=== PATIENT | male | born 1935 | race American Indian/Alaskan Native ===

== ENCOUNTER 2018-08-07 03:02 | Inpatient (IN) | payer MEDICARE ==
[2018-08-07 03:05] VITALS: BMI 28.1
--- NOTE | 2018-08-07 03:51 | ED PDOC ---
Arrival/HPI - General Chief Complaint: Lower Extremity Problem/Injury Time Seen by Provider: 08/07/18 03:05 Historian: Patient - History of Present Illness Narrative History of Present Illness (Text): 08/07/18 03:48 Enrike Bejarano is an 83 year old male, whose past medical history includes lung cancer, COPD, BPH, and chronic kidney disease, who presents to the Emergency department brought in by EMS complaining of bilateral lower extremity pain. Patient states he was recently discharged from [facility] today following treatment for cellulitis but states his symptoms have not improved. Patient states he is still experiencing bilateral lower extremity pain, left greater than the right. Patient denies any fever, chills, chest pain, shortness of breath, nausea, vomiting, diarrhea, urinary symptoms, back pain, neck pain, headache, dizziness, or any other complaints. Symptom Onset: Gradual Symptom Course: Unchanged Activities at Onset: Light Context: Home Past Medical History - Provider Review Nursing Documentation Reviewed: Yes - Cardiac Hx Hypertension: Yes - Pulmonary Hx Chronic Obstructive Pulmonary Disease (COPD): Yes - Neurological Hx Neurological Disorder: No - HEENT Hx HEENT Disorder: No - Renal Hx Renal Disorder: Yes - Endocrine/Metabolic Hx Endocrine Disorders: No - Hematological/Oncological Hx Blood Disorders: No - Integumentary Hx Psoriasis: Yes - Musculoskeletal/Rheumatological Hx Musculoskeletal Disorders: No - Gastrointestinal Hx Gastrointestinal Disorders: No - Genitourinary/Gynecological Hx Genitourinary Disorders: Yes Hx Prostate Problems: Yes - Psychiatric Hx Psychophysiologic Disorder: No Hx Substance Use: No - Anesthesia Hx Anesthesia: Yes Hx Anesthesia Reactions: No Hx Malignant Hyperthermia: No Family/Social History - Physician Review Nursing Documentation Reviewed: Yes Family/Social History: Unknown Family HX Smoking Status: Former Smoker Hx Alcohol Use: No Hx Substance Use: No Allergies/Home Meds Allergies/Adverse Reactions: Allergies No Known Allergies Allergy (Verified 08/07/18 03:05) Home Medications: Home Meds Medication Instructions Recorded Confirmed Aspirin [Aspirin Chewable] 81 mg PO DAILY 08/07/18 08/07/18 Cephalexin [Keflex] 500 mg PO Q12H 08/07/18 08/07/18 Ferrous Sulfate 325 mg PO DAILY 08/07/18 08/07/18 Finasteride [Proscar] 5 mg PO DAILY 08/07/18 08/07/18 Fluticasone/Vilanterol 100/25 1 puff PO DAILY 08/07/18 08/07/18 [Breo Ellipta 100-25 MCG INH] Folic Acid 1 mg PO DAILY 08/07/18 08/07/18 Furosemide [Lasix] 20 mg PO DAILY 08/07/18 08/07/18 Simvastatin [Zocor] 10 mg PO DAILY 08/07/18 08/07/18 Sucralfate [Carafate] 1 gm PO ACHS 08/07/18 08/07/18 Tamsulosin [Flomax] 0.4 mg PO Q24H 08/07/18 08/07/18 diltiaZEM [Cardizem] 30 mg PO QID 08/07/18 08/07/18 Review of Systems - Physician Review All systems were reviewed & negative as marked: Yes - Review of Systems Constitutional: Normal. absent: Fevers Eyes: Normal ENT: Normal Respiratory: Normal. absent: SOB, Cough Cardiovascular: Normal. absent: Chest Pain Gastrointestinal: Normal. absent: Abdominal Pain, Diarrhea, Nausea, Vomiting Genitourinary Male: Normal. absent: Dysuria, Frequency, Hematuria, Urinary Output Changes Musculoskeletal: Other (+bilateral lower extremity pain). absent: Back Pain, Neck Pain Skin: Normal. absent: Rash Neurological: Normal. absent: Headache, Dizziness Endocrine: Normal Hemo/Lymphatic: Normal Psychiatric: Normal Physical Exam Vital Signs Reviewed: Yes Vital Signs Temp Pulse Resp BP Pulse Ox 08/07/18 03:17 98.0 F 85 18 130/58 L 95 Temperature: Afebrile Blood Pressure: Normal Pulse: Regular Respiratory Rate: Normal Appearance: Positive for: Well-Appearing, Non-Toxic, Comfortable Pain Distress: None Mental Status: Positive for: Alert and Oriented X 3 - Systems Exam Head: Present: Atraumatic, Normocephalic Pupils: Present: PERRL Extroacular Muscles: Present: EOMI Conjunctiva: Present: Normal Mouth: Present: Moist Mucous Membranes Neck: Present: Normal Range of Motion Respiratory/Chest: Present: Clear to Auscultation, Good Air Exchange. No: Respiratory Distress, Accessory Muscle Use Cardiovascular: Present: Regular Rate and Rhythm, Normal S1, S2. No: Murmurs Abdomen: No: Tenderness, Distention, Peritoneal Signs Back: Present: Normal Inspection Upper Extremity: Present: Normal Inspection. No: Cyanosis, Edema Lower Extremity: Present: NORMAL PULSES, Normal ROM, Erythema (Bilateral lower extremity erythema and warmth/dry scaly skin), Neurovascularly Intact, Capillary Refill < 2 s. No: Edema Neurological: Present: GCS=15, CN II-XII Intact, Speech Normal Skin: Present: Warm, Dry, Normal Color. No: Rashes Psychiatric: Present: Alert, Oriented x 3, Normal Insight, Normal Concentration Medical Decision Making ED Course and Treatment: 08/07/18 03:48 Impression: 83 year old male complaining of bilateral lower extremity pain. Plan: -- EKG -- Chest X-ray -- Labs, blood cultures, BNP, cardiac enzymes -- US Duplex Lower Extremities -- Reassess and disposition Prior Visits: Notes and results from previous visits were reviewed. Progress Notes: 08/07/18 05:13 Chest X-ray reviewed, shows no acute processes. 08/07/18 05:27 US Duplex Lower Extremities negative for DVT. 08/07/18 05:[address] Cartagena, who is aware and agrees with plan. Accepts pt in to her service. Pt will go to [facility] observation for cellulitis. Requests Go on consult. - RAD Interpretation Gandy Dancer: ED Physician - Scribe Statement The provider has reviewed the documentation as recorded by the Scribfran Castillo Provider Scribe Attestation: All medical record entries made by the Scribe were at my direction and perso akil dictated by me. I have reviewed the chart and agree that the record accurately reflects my personal performance of the history, physical exam, medical decision making, and the department course for this patient. I have also personally directed, reviewed, and agree with the discharge instructions and disposition. Disposition/Present on Arrival - Present on Arrival Any Indicators Present on Arrival: No History of DVT/PE: No History of Uncontrolled Diabetes: No Urinary Catheter: No History of Decub. Ulcer: No History Surgical Site Infection Following: None - Disposition Have Diagnosis and Disposition been Completed?: Yes Diagnosis: Cellulitis, Leg pain Disposition: HOSPITALIZED Disposition Time: 06:12 Condition: STABLE Discharge Instructions (ExitCare): Cellulitis (ED) Referrals: Yoni Baez MD [Primary Care Provider] - Follow up with primary Forms: [employer] (Yi)
[2018-08-07 06:05] LABS: HEMOGLOBIN 10.8 g/dL (14.0-18.0); MEAN CELL VOLUME 95.2 fl (80.0-105.0); MEAN CORPUSCULAR HEMOGLOBIN 30.8 pg (25.0-35.0); MEAN CORPUSCULAR HGB CONC 32.3 g/dl (31.0-37.0); MEAN PLATELET VOLUME 10.2 fl (7.0-11.0); RBC 3.51 10^6/uL (3.5-6.1); RED CELL DISTRIBUTION WIDTH 16.5 % (11.5-14.5); WHITE BLOOD COUNT 7.4 10^3/uL (4.5-11.0)
[2018-08-07] MEDS ORDERED: cefTRIAXone 1 gm 1 GM/100 ML BAG IV STA (06:10)
[2018-08-07 06:46] LABS: INR 1.21; PARTIAL THROMBOPLASTIN TIME 29.2 Seconds (25.1-36.5)
[2018-08-07 06:48] LABS: ALB/GLOB RATIO 0.9 (1.1-1.8); ALBUMIN 3.5 g/dL (3.0-4.8)
[2018-08-07 07:00] LABS: TROPONIN I 0.01 ng/mL
--- NOTE | 2018-08-07 08:54 | RAD ---
Date of service: 08/07/2018 HISTORY: fever COMPARISON: No prior. FINDINGS: Right-sided MediPort is directed cranially and terminates in the high JV. LUNGS: The lungs are hyperinflated and there is peribronchial thickening with chronic changes in both lungs. There is bibasilar atelectasis/scarring no focal consolidation. PLEURA: No pleural effusions or pneumothorax. CARDIOVASCULAR: The heart is normal in size. No aortic atherosclerotic calcification present. OSSEOUS STRUCTURES: Within normal limits for the patient's age. VISUALIZED UPPER ABDOMEN: Normal. OTHER FINDINGS: None. IMPRESSION: Right-sided MediPort terminates in the right JV. COPD. No acute findings.
[2018-08-07] MEDS ORDERED: Furosemide 40 mg/5 mL Oral Soln UD PO SCH (11:00)
[2018-08-07] MEDS: Sucralfate 1 gm/10 ml Oral Susp UD PO SCH ×3 (11:07→23:36)
[2018-08-07] MEDS: Fluticasone Nasal 50 mcg/Spray NS SCH (11:07)
--- NOTE | 2018-08-07 14:15 | US ---
HISTORY: Leg pain and swelling. Evaluate for DVT PHYSICIAN(S): Haseeb Elder MD. TECHNIQUE: Duplex sonography and color-flow Doppler with graded compression were used to evaluate the deep venous systems of both lower extremities. FINDINGS: The visualized deep venous systems of both lower extremities are sonographically normal and compressible. Normal wave forms and augmentation are seen. There is no sonographic evidence for deep venous thrombosis in the visualized segments of both lower extremities. IMPRESSION: No sonographic evidence for deep venous thrombosis in the visualized segments of both lower extremities.
[2018-08-07] MEDS ORDERED: Pneumococcal 23-Valent Vaccine IM ONE (15:45)
[2018-08-07] MEDS ORDERED: Influenza Vaccine 60 mcg/0.5 mL SYR (4YR UP) IM ONE (15:45)
--- NOTE | 2018-08-07 16:53 | CP.PCM.CON ---
History of Present Illness - History of Present Illness History of Present Illness: Infectious Disease Consultation: August 07, 2018 83 yo male with extensive past medical history that includes lung cancer, COPD, BPH, and chronic kidney disease recented discharged from [facility]. The patient complains of bilateral lower extremity pain with left greater than right. The patient is awake and alert. Currently afebrile. Venous Duplex was negative for DVT. Patient claims pain up to 10 out of 10 that hits only intermittently throughout the day. Currently the patient states pain is 0 but that he experiences intermittent pain as low as 5 out of 10 up to 10 out of 10. PMHx: Lung Cancer, COPD, BPH, CKD PSHx: Patient does not reveal any history of surgery at this time. Will check [facility] records. Allergies: NKDA Social Hx: Ex-smoker No EtOH or illicit drug use Active Medications Acetylcysteine (Acetylcysteine 20%) 3 ml INH BID [facility] Arformoterol Tartrate (Brovana) 15 mcg IH [id number] [facility] Aspirin (Ecotrin) 81 mg PO DAILY [facility] Atorvastatin Calcium (Lipitor) 10 mg PO DIN [facility] Budesonide (Pulmicort Respules) 0.5 mg IH [id number] [facility] Diltiazem HCl (Cardizem) 30 mg PO QID [facility] Ferrous Sulfate (Feosol) 324 mg PO DAILY [facility] Finasteride (Proscar) 5 mg PO DAILY [facility] Fluticasone Propionate (Flonase) 1 actuation NS DAILY [facility] Last Admin: 08/07/18 11:07 Dose: 1 puff Folic Acid (Folic Acid) 1 mg PO DAILY [facility] Furosemide (Lasix) 20 mg PO DAILY [facility] Heparin Sodium (Porcine) (Heparin) 5,000 units SC Q12 [facility]; Protocol Ampicillin Sodium/Sulbactam (Sodium 3 gm/ Sodium Chloride) 100 mls @ 200 mls/hr IVPB Q6 [facility] Ipratropium Gaffney (Atrovent) 0.5 mg IH [id number] [facility] Methylprednisolone (Solu-Medrol) 30 mg IVP Q12 [facility] Sucralfate (Carafate Oral Susp) 1 gm PO 0630,1130,1630,2200 [facility] Last Admin: 08/07/18 11:07 Dose: 1 gm Tamsulosin HCl (Flomax) 0.4 mg PO DAILY [facility] Last Admin: 08/07/18 11:07 Dose: 0.4 mg Family Hx: Denies ROS: No fevers, chills, nausea, vomiting, diarrhea, headaches, dizziness, chest pain, abdominal pain, melena, hematuria, hematemesis, hematochezia, depression, anxi ety. Chronic venous stasis changes on the lower extremities. Past Patient History - Past Social History Smoking Status: Former Smoker - CARDIAC Hx Cardiac Disorders: Yes Hx Hypertension: Yes - PULMONARY Hx Respiratory Disorders: Yes Hx Chronic Obstructive Pulmonary Disease (COPD): Yes - NEUROLOGICAL Hx Neurological Disorder: No - HEENT Hx HEENT Problems: No - RENAL Hx Chronic Kidney Disease: Yes - ENDOCRINE/METABOLIC Hx Endocrine Disorders: No - HEMATOLOGICAL/ONCOLOGICAL Hx Blood Disorders: Yes Hx Cancer: Yes (LUNG CA -LAST CHEMO WAS 2 WEEKS AGO.Q 3 WKS. AT [address] [place] [address] TIFFANY TELLO) - INTEGUMENTARY Hx Dermatological Problems: Yes Hx Psoriasis: Yes Other/Comment: 08-07-18 BILATERAL LE EDEMA ,BILATERAL LEG CELLULITIS.HOT SKIN,PAIN,VERY DRY TAUT THICKENED SKIN. INTACT SKIN. PAIN. UANBLE TO WALK DUE TO PAIN. - MUSCULOSKELETAL/RHEUMATOLOGICAL Hx Musculoskeletal Disorders: Yes (SLIPPED DISC,RIGHT HAND SX) Hx Back Pain: Yes Hx Falls: Yes Hx Unsteady Gait: Yes (CANE ,WALKER) - GASTROINTESTINAL Hx Gastrointestinal Disorders: Yes (COLONOSCOPY DONE WITH PERFORATION.HAD COLON SX.) - GENITOURINARY/GYNECOLOGICAL Hx Genitourinary Disorders: Yes Hx Prostate Problems: Yes - PSYCHIATRIC Hx Psychophysiologic Disorder: Yes (SMOKED CIGARETTES,DRANK ALCOHOL.QUIT) Hx Substance Use: No (DENIES) - SURGICAL HISTORY Hx Surgeries: Yes (COLON SX,RIGHT HAND SX.) - ANESTHESIA Hx Anesthesia: Yes Hx Anesthesia Reactions: No Hx Malignant Hyperthermia: No Meds Allergies/Adverse Reactions: Allergies Allergy/AdvReac Type Severity Reaction Status Date / Time No Known Allergies Allergy Verified 08/07/18 11:45 - Medications Medications: Current Medications Acetylcysteine (Acetylcysteine 20%) 3 ml INH BID [facility] Arformoterol Tartrate (Brovana) 15 mcg IH [id number] [facility] Aspirin (Ecotrin) 81 mg PO DAILY [facility] Atorvastatin Calcium (Lipitor) 10 mg PO DIN [facility] Budesonide (Pulmicort Respules) 0.5 mg IH [id number] [facility] Diltiazem HCl (Cardizem) 30 mg PO QID [facility] Ferrous Sulfate (Feosol) 324 mg PO DAILY [facility] Finasteride (Proscar) 5 mg PO DAILY [facility] Fluticasone Propionate (Flonase) 1 actuation NS DAILY [facility] Last Admin: 08/07/18 11:07 Dose: 1 puff Folic Acid (Folic Acid) 1 mg PO DAILY [facility] Furosemide (Lasix) 20 mg PO DAILY [facility] Heparin Sodium (Porcine) (Heparin) 5,000 units SC Q12 [facility]; Protocol Ampicillin Sodium/Sulbactam (Sodium 3 gm/ Sodium Chloride) 100 mls @ 200 mls/hr IVPB Q6 [facility] Ipratropium Gaffney (Atrovent) 0.5 mg IH [id number] Methylprednisolone (Solu-Medrol) 30 mg IVP Q12 [facility] Sucralfate (Carafate Oral Susp) 1 gm PO 0630,1130,1630,2200 [facility] Last Admin: 08/07/18 11:07 Dose: 1 gm Tamsulosin HCl (Flomax) 0.4 mg PO DAILY [facility] Last Admin: 08/07/18 11:07 Dose: 0.4 mg Physical Exam - Constitutional Appears: Non-toxic, No Acute Distress, Chronically Ill - Head Exam Head Exam: ATRAUMATIC, NORMOCEPHALIC - Eye Exam Eye Exam: EOMI, PERRL Pupil Exam: NORMAL ACCOMODATION, PERRL - ENT Exam ENT Exam: Mucous Membranes Moist, Normal External Ear Exam, TM's Normal Bilaterally - Neck Exam Neck exam: Positive for: Full Rom, Normal Inspection - Respiratory Exam Respiratory Exam: Decreased Breath Sounds, NORMAL BREATHING PATTERN. absent: Rales, Rhonchi, Wheezes - Cardiovascular Exam Cardiovascular Exam: REGULAR RHYTHM, RRR, +S1, +S2 - GI/Abdominal Exam GI & Abdominal Exam: Normal Bowel Sounds, Soft. absent: Distended, Tenderness - Extremities Exam Extremities exam: Negative for: joint swelling, pedal edema Additional comments: skin of the lower extremities are much darker than on other parts of the body. Quality of the skin is parchment like. The left lower leg with cracks in the skin but no obvious signs of cellulitis. Mild pinpoint areas of tenderness in t he lower extremities bilaterally although left worse than right. Signs of chronic venous stasis. - Neurological Exam Neurological exam: Alert, CN II-XII Intact, Oriented x3 - Psychiatric Exam Psychiatric exam: Normal Affect, Normal Mood - Skin Additional comments: As above. Results - Vital Signs Recent Vital Signs: Last Vital Signs Temp 97.6 F 08/07/18 14:00 Pulse 85 08/07/18 14:00 Resp 18 08/07/18 15:15 BP 103/56 L 08/07/18 14:00 Pulse Ox 94 L 08/07/18 14:00 - Labs Result Diagrams: 08/07/18 05:08 08/07/18 06:14 Labs: Laboratory Results - last 24 hr 08/07/18 08/07/18 08/07/18 05:08 06:14 06:20 WBC 7.4 RBC 3.51 Hgb 10.8 L Hct 33.4 L MCV 95.2 MCH 30.8 MCHC 32.3 RDW 16.5 H Plt Count 257 MPV 10.2 PT 14.0 H INR 1.21 APTT 29.2 Sodium 135 Potassium 4.4 Chloride 99 Carbon Dioxide 30 Anion Gap 11 BUN 59 H Creatinine 1.8 H Est GFR ( Amer) 44 Est GFR (Non-Af Amer) 36 Random Glucose 104 Calcium 9.0 Total Bilirubin 0.4 AST 43 ALT 24 Alkaline Phosphatase 87 Lactate Dehydrogenase 761 H Total Creatine Kinase 38 Troponin I 0.01 NT-Pro-B Natriuret Pep 416 Total Protein 7.5 Albumin 3.5 Globulin 3.9 Albumin/Globulin Ratio 0.9 L Assessment & Plan - Assessment and Plan (Free Text) Assessment: 83 yo AA male with pain in the bilateral lower extremities. The patient was recently in [facility]. Extensive medical history that includes lung Cancer, COPD, BPH, and CKD. It appears he had followed with Dr. Mario Chawla for Oncology. There are signs of chronic venous stasis in both lower extremities although the left is worse than the right. Minimal signs of cellulitis. No signs of DVT in testing. I suspect significant arterial vascular disease in the lower extremities especially left leg more than the right. Start on renally adjusted Teflaro for antibiotic therapy. Supportive care. Thank you for allowing me to participate in the care of the patient, we will follow with you.
[2018-08-07] MEDS: Acetylcysteine 20% Inhal Soln (4ml) INH SCH (19:55)
[2018-08-07] MEDS: Ipratropium 0.02% Inhal Soln (0.5 mg/2.5 ml) UD IH SCH (19:55)
[2018-08-07] MEDS: Budesonide 0.5 mg/2 ml Inhal Susp UD IH SCH (19:55)
[2018-08-07] MEDS: Arformoterol 15 mcg/2 ml Inh Sol IH SCH (19:55)
--- NOTE | 2018-08-07 20:34 | CARD ---
APPROVED REPORT Date of service: 08/07/2018 EKG Measurement Heart [id number] <Conclusion> Sinus rhythm with occasional premature ventricular complexes Abnormal ECG
[2018-08-07] MEDS ORDERED: Oxycodone/Acetaminophen 5/325 mg Tab PO ONE ×2 (20:41→23:30)
[2018-08-07] MEDS: MethylPREDNISolone 40 mg Vial IVP SCH (23:07)
--- NOTE | 2018-08-08 00:52 | CON ---
DATE: 08/07/2018 PULMONARY CONSULTATION REFERRING PHYSICIAN: Dr. Cartagena REASON FOR CONSULT: History of lung cancer, chronic lung disease, cough and shortness of breath. HISTORY OF PRESENT ILLNESS: This is an 83-year-old gentleman who was recently discharged from [facility], has a history of chronic obstructive lung disease, unresectable lung cancer, been on chemotherapy, last chemo was 3 weeks ago, BPH, renal insufficiency, chronic lower extremity stasis dermatitis, treated for cellulitis at [facility], comes to ER with lower extremity pain and discomfort, cough and shortness of breath. PAST MEDICAL HISTORY: As per history of present illness. Also has hypertension, psoriasis, history of BPH. FAMILY HISTORY: No significant cardiopulmonary disease reported. SOCIAL HISTORY: He stopped smoking about 4-5 years ago. Denied any alcohol use. ALLERGIES: NONE KNOWN. MEDICATIONS: He is on Carafate 1 g four times a day, Cardizem 30 mg four times a day, Ecotrin 81 mg daily, ferrous sulfate 324 mg daily, Flomax 0.4 mg daily, Flonase once to each nostril daily, folic acid 1 mg daily, Lasix 20 mg daily, Lipitor 10 mg daily, Proscar 5 mg daily. He received Rocephin in ER. REVIEW OF SYSTEMS: No headache. No rhinitis. Does not know if snores. Daytime sleepy and tired. Has cough, shortness of breath. No chest pain. No nausea, no vomiting, no diarrhea. Does have leg swelling and erythema. PHYSICAL EXAMINATION: GENERAL: In no acute distress. VITAL SIGNS: Temperature is 98, heart rate is 85, respiratory rate is 18, blood pressure 103/56, pulse ox 94% on nasal cannula. HEENT: Moist mucous membrane. Crowded airway. Mallampati score is 4. NECK: Supple. No JVD. LUNGS: He has one-third up right side crackles. Decreased in the left base. HEART: S1 and S2. ABDOMEN: Soft, nontender. No organomegaly. EXTREMITIES: Does have chronic skin changes in lower extremity with erythema. NEUROLOGIC: Awake, alert, follows simple commands. LABORATORY DATA: Shows hemoglobin 10.8, hematocrit 33.4, WBC 7.4, platelet count is 257. INR 1.21, PTT 29. Sodium 135, potassium 4.4, chloride 99, bicarbonate 30, BUN 59, creatinine 1.8, glucose 104, calcium 9, total bili 0.4, AST 43, ALT 24, alk phos is 87. LDH 761. Troponin 0.01. ProBNP 416. Albumin is 3.5. Has an ultrasound of the lower extremity which shows no evidence of DVT of the lower extremity. Chest x-ray done which shows right-sided MediPort, terminates in the right JV, consistent with obstructive disease. No other acute finding reported. There is basilar atelectasis and scarring. IMPRESSION AND PLAN: Chronic obstructive lung disease, unresectable lung cancer, may have cellulitis of lower extremity, history of renal insufficiency, hypertension, benign prostatic hyperplasia, history of psoriasis. Agree with the present management. We will add antibiotics, may add Unasyn, IV steroids, inhaled bronchodilator, gastric and deep venous thrombosis prophylaxis. The patient does have a follow-up appointment with Pulmonary and Oncology. Will have a CAT scan as an outpatient. We will treat his acute issues for now, and on discharge, we will follow with his oncologist. Thank you and we will follow with you. Bubba Banegas MD
[2018-08-08] MEDS: Ipratropium 0.02% Inhal Soln (0.5 mg/2.5 ml) UD IH SCH ×4 (01:51→20:27)
[2018-08-08] MEDS: Sucralfate 1 gm/10 ml Oral Susp UD PO SCH ×4 (06:36→22:09)
[2018-08-08 07:25] LABS: HEMOGLOBIN 9.8 g/dL (14.0-18.0); MEAN CORPUSCULAR HEMOGLOBIN 29.9 pg (25.0-35.0); MEAN CORPUSCULAR HGB CONC 31.1 g/dl (31.0-37.0); MEAN PLATELET VOLUME 9.2 fl (7.0-11.0); RBC 3.28 10^6/uL (3.5-6.1); WHITE BLOOD COUNT 5.5 10^3/uL (4.5-11.0)
[2018-08-08] MEDS: Arformoterol 15 mcg/2 ml Inh Sol IH SCH ×2 (07:36→20:29)
[2018-08-08] MEDS: Budesonide 0.5 mg/2 ml Inhal Susp UD IH SCH ×2 (07:37→20:28)
[2018-08-08 07:39] LABS: HDL CHOLESTEROL 28 mg/dL (29-60)
[2018-08-08 07:43] LABS: ALB/GLOB RATIO 0.9 (1.1-1.8); ALBUMIN 3.3 g/dL (3.0-4.8); CALCIUM 8.7 mg/dL (8.4-10.5); IRON 37 ug/dL (45-180)
[2018-08-08 07:49] LABS: LDL CHOLESTEROL 73 mg/dL (0-129)
[2018-08-08 07:53] LABS: % IRON SATURATION 17 % (20-55); TOTAL IRON BINDING CAPACITY 216 ug/dL (261-462)
[2018-08-08] MEDS: MethylPREDNISolone 40 mg Vial IVP SCH ×2 (10:42→22:09)
[2018-08-08] MEDS: Fluticasone Nasal 50 mcg/Spray NS SCH (10:46)
[2018-08-08] MEDS ORDERED: Sod Polystyrene Sulf 15 gm/60 ml Susp PO ONE (11:15)
--- NOTE | 2018-08-08 12:01 | HP ---
DATE OF EXAM: 08/07/2018 The patient was seen and examined at the bedside on 08/07/2018. CHIEF COMPLAINT: Pain in the legs. HISTORY OF PRESENT ILLNESS: Mr. Enrike Velez is an 83-year-old male whose past medical history include lung cancer, COPD, BPH, chronic kidney disease, came to the emergency department by EMS, complaining of bilateral lower extremity pain and there is a discoloration of the skin. The patient states that he was recently discharged from [facility] for the treatment of cellulitis of his legs, but states that his symptoms have not improved. The patient states that today he still experiences bilateral lower extremity pain, left greater than the right. The patient denies any fever, chills, shortness of breath and nausea, vomiting, diarrhea. No urinary symptoms. No hematuria, hematochezia. No back pain, neck pain, headache, dizziness. PAST MEDICAL HISTORY: As above; history of lung cancer, COPD, BPH, chronic kidney disease, hypertension, psoriasis, prostate problem. FAMILY HISTORY: Father and mother, noncontributory. HABITS: Former smoker. No drugs. No ethanol. ALLERGIES: PATIENT IS NOT ALLERGIC WITH ANY MEDICATION. HOME MEDICATIONS: Aspirin, Keflex, ferrous sulfate, Proscar, folic acid, Lasix, Zocor, Carafate, Flomax, Cardizem. REVIEW OF SYSTEMS: The patient was seen and examined at the bedside in his room, complaining about leg pain, skin is very dry and discolored. No shortness of breath. No chest pain. No diarrhea. No nausea, vomiting. Both lower extremities are swollen. No headache. No dizziness. PHYSICAL EXAMINATION: VITAL SIGNS: Temperature 98, pulse 85, respiratory rate 18, blood pressure 130/58. HEENT: Head normocephalic, atraumatic. Eyes; PERRLA. Extraocular muscles intact. Conjunctivae clear. Nose patent. Mucous membrane moist. NECK: Supple. No carotid bruit. No JVD. No thyromegaly. CHEST: Bilaterally symmetrical. HEART: S1, S2 positive. LUNGS: Clear to auscultation. ABDOMEN: Soft. Bowel sounds positive. No organomegaly. EXTREMITIES: Positive edema, erythema, warm, dry, scaly skin. NEUROLOGIC: Awake, alert, oriented x3. Follow simple commands. Moving all four extremities. LABORATORY DATA: White blood cells 7.4, hemoglobin 10.8, hematocrit 33.4, platelets 257,000. Sodium 135, potassium 4.4, BUN 59, creatinine 1.8, glucose 104. Lactate dehydrogenase 751. ASSESSMENT AND PLAN: Mr. Enrike Velez is an 83-year-old male with anemia, renal insufficiency, extremity ultrasound has done, showed no sonographic evidence of deep vein thrombosis in the visualized segments of both lower extremities. Chest x-ray was reviewed by me. The patient has history of lung cancer, chronic obstructive pulmonary disease, benign prostatic hypertrophy, chronic kidney disease, recently discharged from [facility], came with bilateral lower extremity pain, left greater than the right. Venous Doppler negative for deep vein thrombosis. The patient complains pain 10/10 that is intermittently throughout the day. When I saw the patient that pain was 6 and 7. Looks like signs of chronic venous stasis in both lower extremities, erythematous. The left is worse than the right. May be the patient has some arterial vascular disease in the lower extremities, left leg more than the right. Dr. Torres started the patient on anb. , adjusted the Teflaro, supportive care. We will do arterial Doppler. Repeat labs. Continue pain medication. Gastrointestinal and deep venous thrombosis prophylaxis. We will follow up. Jessica Cartagena MD MTDD
--- NOTE | 2018-08-08 13:08 | PN ---
DATE: 08/08/2018 PULMONARY PROGRESS NOTE REFERRING PHYSICIAN: Jessica Cartagena MD SUBJECTIVE: The patient is sitting up in an armchair at bedside. No acute distress noted. The patient reports shortness of breath with exertion. No cough. No headache, rhinitis, chest pain, abdominal pain, nausea, vomiting, diarrhea. No leg pain reported today. OBJECTIVE: GENERAL: No acute distress. VITAL SIGNS: Blood pressure 125/60, pulse 80, temp 98.3, oxygen saturation 99% on nasal canula. HEENT: Moist mucous membranes. Crowded airway. Mallampati score of 4. NECK: Supple. No JVD. LUNGS: Right side crackles. Diminished breath sounds on the bases on the left. CARDIOVASCULAR: S1 and S2 audible. ABDOMEN: Soft, nontender. No distension. No organomegaly. EXTREMITIES: Chronic skin changes to bilateral lower extremities with mild erythema. NEUROLOGIC: Awake, alert. Follows simple commands. Verbal. MEDICATION: Reviewed. Mucomyst 3 mL inhalation twice a day, Brovana 15 mcg inhalation every 12 hours, aspirin 81 mg p.o. daily, Lipitor 10 mg at dinner, Pulmicort 0.5 mg inhalation every 12 hours, ceftaroline fosamil 400 mg every 12 hours, Cardizem 30 mg four times a day, Colace 100 mg twice a day, ferrous sulfate 324 mg daily, Proscar 5 mg daily, Flonase one spray each nostril daily, folic acid 1 mg p.o. daily, Lasix 20 mg p.o. daily, heparin 5000 unit subcu every 12 hours, Dilaudid 0.5 mg IV push every 4 hours p.r.n. mild pain, Atrovent 0.5 mg inhalation every 6 hours, Solu-Medrol 30 mg IV push every 12 hours, Kayexalate 15 g p.o. once, Carafate 1 g four times a day, Flomax 0.4 mg daily. LABORATORY DATA: Reviewed. WBC 5.5, RBC 3.28, hemoglobin 9.8, hematocrit 31.5, platelets 300. Sodium 136, potassium 5.4, chloride 100, carbon dioxide 30, anion gap 11, BUN 53, creatinine 1.8. GFR 44. Random glucose 137, calcium 8.7, iron 37, TIBC 216, percent saturation 17, total bilirubin 0.3, AST 45, ALT 25, alkaline phosphatase 80, total protein 7.1, albumin 3.3, globulin 3.8, and albumin-globulin ratio 0.9. Triglycerides 54, cholesterol 118, LDL cholesterol direct 73, HDL cholesterol 28. IMPRESSION AND PLAN: Chronic obstructive lung disease, unresectable lung cancer, cellulitis of lower extremity, history of renal insufficiency, hypertension, benign prostatic hyperplasia, history of psoriasis. Continue antibiotic therapy as per Infectious Disease. Continue intravenous steroids, inhaled bronchodilators, gastric prophylaxis, deep venous thrombosis prophylaxis. The patient will need followup CAT scan as outpatient. The patient does have followup with his outpatient Pulmonary and Oncology. Need repeat labs in the morning to follow potassium level. This patient was seen and examined with Dr. Banegas. Discussed assessment and plan as described above. Thank you for this consult and we will follow with you. Perry Dotson APN Bubba Banegas MD
[2018-08-08] MEDS: Acetylcysteine 20% Inhal Soln (4ml) INH SCH ×2 (13:47→20:28)
[2018-08-08 14:04] LABS: FOLATE > 20.0 ng/mL
[2018-08-08] MEDS: HYDROmorphone 0.5 mg/0.5 ml ISec IVP PRN (15:08)
--- NOTE | 2018-08-08 16:20 | CP.PCM.PN ---
Subjective - Date & Time of Evaluation Date of Evaluation: 08/08/18 Time of Evaluation: 15:00 - Subjective Subjective: Infectious Disease Follow Up: August 08, 2018 83 yo male with extensive past medical history that includes lung cancer, COPD, BPH, and chronic kidney disease recented discharged from [facility]. The patient comp lains of bilateral lower extremity pain with left greater than right. The patient is awake and alert. Currently afebrile. Venous Duplex was negative for DVT. Patient claims pain up to 10 out of 10 that hits only intermittently throughout the day. Currently the patient states pain is 0 but that he experiences intermittent pain as low as 5 out of 10 up to 10 out of 10. No new complaints today. Objective - Vital Signs/Intake and Output Vital Signs (last 24 hours): Temp Pulse Resp BP Pulse Ox 98.3 F 80 20 125/60 99 08/08/18 06:00 08/08/18 10:47 08/08/18 06:00 08/08/18 10:50 08/08/18 06:00 Intake and Output: 08/08/18 08/08/18 06:59 18:59 Intake Total 620 Output Total 300 Balance 320 - Medications Medications: Current Medications Acetylcysteine (Acetylcysteine 20%) 3 ml INH BID [facility] Last Admin: 08/08/18 13:47 Dose: 3 ml Arformoterol Tartrate (Brovana) 15 mcg IH [id number] [facility] Last Admin: 08/08/18 07:36 Dose: 15 mcg Aspirin (Ecotrin) 81 mg PO DAILY [facility] Last Admin: 08/08/18 10:50 Dose: 81 mg Atorvastatin Calcium (Lipitor) 10 mg PO DIN [facility] Last Admin: 08/07/18 18:49 Dose: 10 mg Budesonide (Pulmicort Respules) 0.5 mg IH [id number] [facility] Last Admin: 08/08/18 07:37 Dose: 0.5 mg Diltiazem HCl (Cardizem) 30 mg PO QID [facility] Last Admin: 08/08/18 10:47 Dose: 30 mg Docusate Sodium (Colace) 100 mg PO BID [facility] Last Admin: 08/08/18 12:59 Dose: 100 mg Ferrous Sulfate (Feosol) 324 mg PO DAILY [facility] Last Admin: 08/08/18 10:46 Dose: 324 mg Finasteride (Proscar) 5 mg PO DAILY [facility] Last Admin: 08/08/18 10:50 Dose: 5 mg Fluticasone Propionate (Flonase) 1 actuation NS DAILY [facility] Last Admin: 08/08/18 10:46 Dose: 1 puff Folic Acid (Folic Acid) 1 mg PO DAILY [facility] Last Admin: 08/08/18 10:46 Dose: 1 mg Furosemide (Lasix) 20 mg PO DAILY [facility] Last Admin: 08/08/18 10:50 Dose: 20 mg Heparin Sodium (Porcine) (Heparin) 5,000 units SC Q12 [facility]; Protocol Last Admin: 08/08/18 10:43 Dose: 5,000 units Hydromorphone HCl (Dilaudid) 0.5 mg IVP Q6H PRN PRN Reason: Pain, Mild (1-3) Ceftaroline Fosamil 400 mg/ (Sodium Chloride) 100 mls @ 100 mls/hr IVPB Q12 [facility]; Protocol Last Admin: 08/08/18 10:40 Dose: 100 mls/hr Ipratropium [place] (Atrovent) 0.5 mg IH [id number] [facility] Last Admin: 08/08/18 13:46 Dose: 0.5 mg Methylprednisolone (Solu-Medrol) 30 mg IVP Q12 [facility] Last Admin: 08/08/18 10:42 Dose: 30 mg Sucralfate (Carafate Oral Susp) 1 gm PO 0630,1130,1630,2200 [facility] Last Admin: 08/08/18 06:36 Dose: 1 gm Tamsulosin HCl (Flomax) 0.4 mg PO DAILY [facility] Last Admin: 08/08/18 10:50 Dose: 0.4 mg - Labs Labs: 08/08/18 07:00 08/08/18 07:00 PT 14.0 SECONDS (9.4-12.5) H 08/07/18 06:20 INR 1.21 08/07/18 06:20 APTT 29.2 Seconds (25.1-36.5) 08/07/18 06:20 - Constitutional Appears: Non-toxic, No Acute Distress, Chronically Ill - Head Exam Head Exam: ATRAUMATIC, NORMOCEPHALIC - Eye Exam Eye Exam: EOMI, PERRL Pupil Exam: NORMAL ACCOMODATION, PERRL - ENT Exam ENT Exam: Mucous Membranes Moist, Normal External Ear Exam, TM's Normal Bilaterally - Neck Exam Neck Exam: Full ROM, Normal Inspection - Respiratory Exam Respiratory Exam: Clear to Ausculation Bilateral, NORMAL BREATHING PATTERN. absent: Rales, Rhonchi, Wheezes - Cardiovascular Exam Cardiovascular Exam: REGULAR RHYTHM, RRR, +S1, +S2 - GI/Abdominal Exam GI & Abdominal Exam: Soft, Normal Bowel Sounds. absent: Distended, Tenderness - Extremities Exam Extremities Exam: absent: Joint Swelling, Pedal Edema Additional comments: skin of the lower extremities are much darker than on other parts of the body. Quality of the skin is parchment like. The left lower leg with cracks in the skin but no obvious signs of cellulitis. Mild pinpoint areas of tenderness in the lower extremities bilaterally although left worse than right. Signs of chronic venous stasis. - Neurological Exam Neurological Exam: Alert, Awake, CN II-XII Intact, Oriented x3 - Psychiatric Exam Psychiatric exam: Normal Affect, Normal Mood - Skin Additional comments: As above. Assessment and Plan - Assessment and Plan (Free Text) Assessment: 83 yo AA male with pain in the bilateral lower extremities. The patient was recently in [facility]. Extensive medical history that includes lung Cancer, COPD, BPH, and CKD. It appears he had followed with Dr. Mario Chawla for Oncology. There are signs of chronic venous stasis in both lower extremities although the left is worse than the right. Minimal signs of cellulitis. No signs of DVT in testing. I suspect significant arterial vascular disease in the lower extremities especially left leg more than the right. Started on renally adjusted Teflaro for antibiotic therapy. If cultures negative, will deescalate antibiotics. Supportive care. Thank you for allowing me to participate in the care of the patient, we will follow with you.
[2018-08-09] MEDS: Ipratropium 0.02% Inhal Soln (0.5 mg/2.5 ml) UD IH SCH ×5 (01:54→19:11)
[2018-08-09] MEDS: HYDROmorphone 0.5 mg/0.5 ml ISec IVP PRN (03:28)
[2018-08-09] MEDS: Sucralfate 1 gm/10 ml Oral Susp UD PO SCH ×4 (06:00→22:29)
[2018-08-09] MEDS: Acetylcysteine 20% Inhal Soln (4ml) INH SCH ×3 (07:23→18:47)
[2018-08-09] MEDS: Arformoterol 15 mcg/2 ml Inh Sol IH SCH ×3 (07:24→19:11)
[2018-08-09] MEDS: Budesonide 0.5 mg/2 ml Inhal Susp UD IH SCH ×3 (07:24→19:11)
[2018-08-09 07:27] LABS: HEMOGLOBIN 9.9 g/dL (14.0-18.0); MEAN CELL VOLUME 96.4 fl (80.0-105.0); MEAN CORPUSCULAR HGB CONC 31.1 g/dl (31.0-37.0); MEAN PLATELET VOLUME 9.4 fl (7.0-11.0); RBC 3.3 10^6/uL (3.5-6.1); WHITE BLOOD COUNT 8.5 10^3/uL (4.5-11.0)
[2018-08-09 07:37] LABS: CALCIUM 8.9 mg/dL (8.4-10.5)
[2018-08-09] MEDS: Fluticasone Nasal 50 mcg/Spray NS SCH (09:43)
[2018-08-09] MEDS: MethylPREDNISolone 40 mg Vial IVP SCH ×2 (09:45→22:30)
--- NOTE | 2018-08-09 12:15 | PN ---
PULMONARY PROGRESS NOTE DATE: 08/09/2018 REFERRING PHYSICIAN: Dr. Cartagena. SUBJECTIVE: Patient sitting up at bedside, no acute distress, reports that last night he had pain in his left leg, much better this morning, reports shortness of breath with exertion, denies cough. No headache, rhinitis, chest pain, abdominal pain, nausea, vomiting, diarrhea reported. OBJECTIVE: GENERAL: No acute distress. VITAL SIGNS: Blood pressure 132/64, pulse 64, temperature 97.6, and oxygen saturation 96% on nasal cannula. HEENT: Moist mucous membranes. Crowded airway. Mallampati score of 4. NECK: Supple. No JVD. LUNGS: Crackles audible to the right, diminished breath sounds in the left lung base. CARDIOVASCULAR: S1 and S2 audible. ABDOMEN: Soft, nontender. No distension. No organomegaly. EXTREMITIES: Chronic changes to bilateral lower extremities. NEUROLOGIC: Awake, alert, verbal, follows simple commands. MEDICATIONS: Reviewed. Mucomyst 3 mL inhalation twice a day, Brovana 15 mcg inhalation every 12 hours, aspirin 81 mg p.o. daily, Lipitor 10 mg p.o. at dinner, Pulmicort 0.5 mg inhalation every 12 hours, ceftaroline fosamil 400 mg every 12 hours, Cardizem 30 mg p.o. 4 times a day, Colace 100 mg p.o. twice a day, ferrous sulfate 324 mg p.o. daily, Proscar 5 mg p.o. daily, Flonase 1 spray each nostril daily, folic acid 1 mg p.o. daily, Lasix 20 mg p.o. daily, heparin 5000 units subcu every 12 hours, Dilaudid 0.5 mg IV push every 6 hours p.r.n., 0.5 mg inhalation every 6 hours, Solu-Medrol 30 mg IV push every 12 hours, Carafate 1 g four times a day, Flomax 0.4 mg p.o. daily. LABORATORY DATA: Reviewed. WBC 8.5, RBC 3.30, hemoglobin 9.9, hematocrit 31.8, platelets 444. Sodium 136, potassium 5.1, chloride 100, carbon dioxide 31, anion gap 11, BUN 57, creatinine 1.8. GFR 44. Random glucose 123, calcium 8.9, TSH 1.73. IMPRESSION AND PLAN: Chronic obstructive lung disease, unresectable lung cancer, cellulitis of the lower extremity, history of renal insufficiency, benign prostatic hyperplasia, history of psoriasis, hypertension. Pulmonary point of view, continue antibiotics as per Infectious Disease. Continue intravenous steroids, inhaled bronchodilators, gastric prophylaxis, deep venous thrombosis prophylaxis. Echocardiogram ordered and pending. This patient will need followup CAT scan as outpatient. We will order a podiatry consult. Close followup on the electrolytes. This patient was seen and examined with Dr. Banegas. Discussed assessment and plan as described above. Thank you for this consult, we will follow with you. Perry Dotson APN Bubba Banegas MD MTDJeff
--- NOTE | 2018-08-09 14:04 | CP.PCM.CON ---
<Fish Hussein - Last Filed: 08/09/18 13:58> History of Present Illness - History of Present Illness History of Present Illness: Podiatry consult note for Dr. Gordon: 83 yo male patient with extensive PMH that includes lung cancer, COPD, BPH, and chronic kidney disease recently discharged from [facility] seen and evaluated for pain and swelling of the LE L > R. The patient complains of bilateral lower extremity pain with left greater than right. The patient is awake and alert and on nasal O2. Patient states that 3 weeks ago he started to feel pain in his legs L > R. The pain is cramping, 10/10 more in the night when he lies on bed and received by sitting and hanging the legs. Patient states that the pain is intermittent throughout the day. Patient states that he can walk 1-2 blocks. P atient states that his left leg was swollen and the swelling went down. Patient denies any recent F/N/V or C. PMHx: Lung Cancer, COPD, BPH, CKD PSH: Patient does not reveal any history of surgery at this time. Will check [facility] records. Allergies: NKDA Social Hx: Ex-smoker (Quit 6 years ago after 60 years of 1 ppd tobacco smoking), EtOH socially, denies any illicit drug use Review of Systems - Review of Systems Review of Systems: As per HPI - Constitutional Constitutional: As Per HPI Past Patient History - Past Social History Smoking Status: Former Smoker - CARDIAC Hx Cardiac Disorders: Yes Hx Hypertension: Yes - PULMONARY Hx Chronic Obstructive Pulmonary Disease (COPD): Yes - NEUROLOGICAL Hx Neurological Disorder: No - HEENT Hx HEENT Problems: No - RENAL Hx Renal Failure: Yes (CKD) - ENDOCRINE/METABOLIC Hx Endocrine Disorders: No - HEMATOLOGICAL/ONCOLOGICAL Hx Blood Disorders: Yes Hx Cancer: Yes (LUNG CA -LAST CHEMO WAS 2 WEEKS AGO.Q 3 WKS. AT [address] [place] [address] [place]) - INTEGUMENTARY Hx Dermatological Problems: Yes Hx Psoriasis: Yes Other/Comment: 08-07-18 BILATERAL LE EDEMA ,BILATERAL LEG CELLULITIS.HOT SKIN,PAIN,VERY DRY TAUT THICKENED SKIN. INTACT SKIN. PAIN. UANBLE TO WALK DUE TO PAIN. - MUSCULOSKELETAL/RHEUMATOLOGICAL Hx Musculoskeletal Disorders: Yes (SLIPPED DISC,RIGHT HAND SX) Hx Back Pain: Yes Hx Falls: Yes Hx Unsteady Gait: Yes (CANE ,WALKER) - GASTROINTESTINAL Hx Gastrointestinal Disorders: Yes (COLONOSCOPY DONE WITH PERFORATION.HAD COLON SX.) - GENITOURINARY/GYNECOLOGICAL Hx Genitourinary Disorders: Yes Hx Prostate Problems: Yes - PSYCHIATRIC Hx Psychophysiologic Disorder: Yes (SMOKED CIGARETTES,DRANK ALCOHOL.QUIT) Hx Substance Use: No (DENIES) - SURGICAL HISTORY Hx Surgeries: Yes (COLON SX,RIGHT HAND SX.) - ANESTHESIA Hx Anesthesia: Yes Hx Anesthesia Reactions: No Hx Malignant Hyperthermia: No Meds Allergies/Adverse Reactions: Allergies Allergy/AdvReac Type Severity Reaction Status Date / Time No Known Allergies Allergy Verified 08/07/18 11:45 - Medications Medications: Current Medications Acetylcysteine (Acetylcysteine 20%) 3 ml INH BID [facility] Last Admin: 08/09/18 13:03 Dose: Not Given Arformoterol Tartrate (Brovana) 15 mcg IH [id number] [facility] Last Admin: 08/09/18 07:24 Dose: 15 mcg Aspirin (Ecotrin) 81 mg PO DAILY [facility] Last Admin: 08/09/18 09:44 Dose: 81 mg Atorvastatin Calcium (Lipitor) 10 mg PO DIN [facility] Last Admin: 08/08/18 18:04 Dose: 10 mg Budesonide (Pulmicort Respules) 0.5 mg IH [id number] [facility] Last Admin: 08/09/18 07:24 Dose: 0.5 mg Diltiazem HCl (Cardizem) 30 mg PO QID [facility] Last Admin: 08/09/18 09:44 Dose: 30 mg Docusate Sodium (Colace) 100 mg PO BID [facility] Last Admin: 08/09/18 09:45 Dose: 100 mg Ferrous Sulfate (Feosol) 324 mg PO DAILY [facility] Last Admin: 08/09/18 09:44 Dose: 324 mg Finasteride (Proscar) 5 mg PO DAILY [facility] Last Admin: 08/09/18 09:44 Dose: 5 mg Fluticasone Propionate (Flonase) 1 actuation NS DAILY [facility] Last Admin: 08/09/18 09:43 Dose: 1 puff Folic Acid (Folic Acid) 1 mg PO DAILY [facility] Last Admin: 08/09/18 09:44 Dose: 1 mg Furosemide (Lasix) 20 mg PO DAILY [facility] Last Admin: 08/09/18 09:44 Dose: 20 mg Heparin Sodium (Porcine) (Heparin) 5,000 units SC Q12 [facility]; Protocol Last Admin: 08/09/18 09:45 Dose: 5,000 units Hydromorphone HCl (Dilaudid) 0.5 mg IVP Q6H PRN PRN Reason: Pain, Mild (1-3) Last Admin: 08/09/18 03:28 Dose: 0.5 mg Ceftaroline Fosamil 400 mg/ (Sodium Chloride) 100 mls @ 100 mls/hr IVPB Q12 [facility]; Protocol Last Admin: 08/09/18 09:43 Dose: 100 mls/hr Ipratropium [place] (Atrovent) 0.5 mg IH [id number] [facility] Last Admin: 08/09/18 13:14 Dose: 0.5 mg Methylprednisolone (Solu-Medrol) 30 mg IVP Q12 [facility] Last Admin: 08/09/18 09:45 Dose: 30 mg Sucralfate (Carafate Oral Susp) 1 gm PO 0630,1130,1630,2200 [facility] Last Admin: 08/09/18 06:00 Dose: 1 gm Tamsulosin HCl (Flomax) 0.4 mg PO DAILY [facility] Last Admin: 08/09/18 09:44 Dose: 0.4 mg Physical Exam - Head Exam Head Exam: ATRAUMATIC, NORMOCEPHALIC - Extremities Exam Additional comments: Right Lower Extremity Focused Exam VASC: DP/PT are faintly palpable 1/4 bilaterally, Cap refill about 4 seconds to all digits, Temp gradient is warm to cool from proximal to distal, +1 pitting edema B/L L > R NEURO: Gross and protective sensations are intact b/l. DERM: B/L extensive xerosis extends up to the tibial tuberosity with skin c hanges and hyper pigmentation consistent with Chronic venous insufficiency L>R. Toe nails elongated, dystrophic and discolored to all digits. MSK: Mild on palpation the L sheppard of tibia. Muscle power intact 5/5 to all groups. B/L diffuse arthritic changes. B/L pes planus. B/L calf squeeze didn't illicit any pain. - Neurological Exam Neurological exam: Alert, Oriented x3 - Psychiatric Exam Psychiatric exam: Normal Affect, Normal Mood Results - Vital Signs Recent Vital Signs: Last Vital Signs Temp 97.6 F 08/09/18 07:34 Pulse 64 08/09/18 07:34 Resp 20 08/09/18 07:34 BP 132/64 08/09/18 09:44 Pulse Ox 96 08/09/18 07:34 - Labs Result Diagrams: 08/09/18 07:00 08/09/18 07:00 Labs: Laboratory Results - last 24 hr 08/08/18 08/09/18 08/09/18 07:00 07:00 07:00 WBC 8.5 D RBC 3.30 L Hgb 9.9 L Hct 31.8 L MCV 96.4 MCH 30.0 MCHC 31.1 RDW 16.0 H Plt Count 444 MPV 9.4 Sodium 136 Potassium 5.1 H Chloride 100 Carbon Dioxide 31 Anion Gap 11 BUN 57 H Creatinine 1.8 H Est GFR ( Amer) 44 Est GFR (Non-Af Amer) 36 Random Glucose 123 H Calcium 8.9 Vitamin B12 989 H Folate > 20.0 TSH 3rd Generation 08/09/18 07:00 WBC RBC Hgb Hct MCV MCH MCHC RDW Plt Count MPV Sodium Potassium Chloride Carbon Dioxide Anion Gap BUN Creatinine Est GFR ( Amer) Est GFR (Non-Af Amer) Random Glucose Calcium Vitamin B12 Folate TSH 3rd Generation 1.73 Assessment & Plan - Assessment and Plan (Free Text) Assessment: 83 yo male patient seen and evaluated for pain and swelling of the LE L > R, PVD and chronic venous insufficiency. Plan: Patient seen and evaluated at bedside. Plan discussed with Dr. Gordon Patient labs, chart and vitals reviewed; Afebrile, WBC 8.5 B/L LE venous duplex: No evidence of DVT Ordered MAYELIN/PVR B/L Ordred vascular consult Rx; Ammonium lactate 12% lotion topical BID ID on board; recommendations appreciated. Explained to the patient that his LE problem is mainly vascular. No dressing applied to the LE Podiatry will continue to follow up the patient while in house. - Date & Time Date: 08/09/18 Time: 14:18 <Jamie Gordon - Last Filed: 08/10/18 12:40> Meds - Medications Medications: Current Medications Acetylcysteine (Acetylcysteine 20%) 3 ml INH BID [facility] Last Admin: 08/10/18 07:29 Dose: 3 ml Arformoterol Tartrate (Brovana) 15 mcg IH [id number] [facility] Last Admin: 08/10/18 07:30 Dose: 15 mcg Aspirin (Ecotrin) 81 mg PO DAILY [facility] Last Admin: 08/10/18 11:22 Dose: 81 mg Atorvastatin Calcium (Lipitor) 10 mg PO DIN [facility] Last Admin: 08/09/18 17:18 Dose: 10 mg Budesonide (Pulmicort Respules) 0.5 mg IH [id number] [facility] Last Admin: 08/10/18 07:30 Dose: 0.5 mg Diltiazem HCl (Cardizem) 30 mg PO QID [facility] Last Admin: 08/10/18 11:23 Dose: 30 mg Docusate Sodium (Colace) 100 mg PO BID [facility] Last Admin: 08/10/18 11:22 Dose: 100 mg Ferrous Sulfate (Feosol) 324 mg PO DAILY [facility] Last Admin: 08/10/18 11:22 Dose: 324 mg Finasteride (Proscar) 5 mg PO DAILY [facility] Last Admin: 08/10/18 11:38 Dose: 5 mg Fluticasone Propionate (Flonase) 1 actuation NS DAILY [facility] Last Admin: 08/10/18 11:38 Dose: 1 puff Folic Acid (Folic Acid) 1 mg PO DAILY [facility] Last Admin: 08/10/18 11:38 Dose: 1 mg Furosemide (Lasix) 20 mg PO DAILY [facility] Last Admin: 08/10/18 11:23 Dose: 20 mg Heparin Sodium (Porcine) (Heparin) 5,000 units SC Q12 [facility]; Protocol Last Admin: 08/10/18 11:19 Dose: 5,000 units Hydromorphone HCl (Dilaudid) 0.5 mg IVP Q6H PRN PRN Reason: Pain, Mild (1-3) Last Admin: 08/09/18 03:28 Dose: 0.5 mg Ceftriaxone Sodium (Rocephin 1 Gram Ivpb) 1 gm in 100 mls @ 100 mls/hr IVPB DAILY [facility]; Protocol Last Admin: 08/10/18 11:18 Dose: 100 mls/hr Ipratropium [place] (Atrovent) 0.5 mg IH [id number] [facility] Last Admin: 08/10/18 07:30 Dose: 0.5 mg Lactic Acid (Lac-Hydrin 12% Lotion (225 G)) 1 gm EXT BID [facility] Last Admin: 08/10/18 11:32 Dose: 1 applic Methylprednisolone (Solu-Medrol) 30 mg IVP Q12 [facility] Last Admin: 08/10/18 11:19 Dose: 30 mg Sucralfate (Carafate Oral Susp) 1 gm PO 0630,1130,1630,2200 [facility] Last Admin: 08/10/18 11:22 Dose: 1 gm Tamsulosin HCl (Flomax) 0.4 mg PO DAILY [facility] Last Admin: 08/10/18 11:22 Dose: 0.4 mg Results - Vital Signs Recent Vital Signs: Last Vital Signs Temp 97.6 F 08/10/18 07:00 Pulse 69 08/10/18 07:00 Resp 18 08/10/18 07:00 BP 139/69 08/10/18 11:23 Pulse Ox 97 08/10/18 07:00 - Labs Result Diagrams: 08/09/18 07:00 08/10/18 07:00 Labs: Laboratory Results - last 24 hr 08/09/18 08/10/18 23:27 07:00 Sodium 136 Potassium 4.8 Chloride 102 Carbon Dioxide 27 Anion Gap 12 BUN 58 H Creatinine 1.8 H Est GFR ( Amer) 44 Est GFR (Non-Af Amer) 36 POC Glucose (mg/dL) 126 H Random Glucose 113 H Calcium 8.8 Total Bilirubin 0.2 AST 50 ALT 29 Alkaline Phosphatase 73 Total Protein 6.5 Albumin 3.2 Globulin 3.2 Albumin/Globulin Ratio 1.0 L Attending/Attestation - Attestation I have personally seen and examined this patient.: Yes I have fully participated in the care of the patient.: Yes I have reviewed all pertinent clinical information: Yes
--- NOTE | 2018-08-09 14:30 | CP.PCM.PN ---
Subjective - Date & Time of Evaluation Date of Evaluation: 08/09/18 Time of Evaluation: 14:00 - Subjective Subjective: Infectious Disease Follow Up: August 09, 2018 83 yo male with extensive past medical history that includes lung cancer, COPD, BPH, and chronic kidney disease [place] [facility] [place] The patient comp lains of bilateral lower extremity pain with left greater than right. The patient is awake and alert. Currently afebrile. Venous Duplex was negative for DVT. Patient claims pain up to 10 out of 10 that hits only intermittently throughout the day. Currently the patient states pain is 0 but that he experiences intermittent pain as low as 5 out of 10 up to 10 out of 10. No new complaints today. Objective - Vital Signs/Intake and Output Vital Signs (last 24 hours): Temp Pulse Resp BP Pulse Ox 97.6 F 64 20 132/64 96 08/09/18 07:34 08/09/18 07:34 08/09/18 07:34 08/09/18 09:44 08/09/18 07:34 Intake and Output: 08/09/18 08/09/18 06:59 18:59 Intake Total 620 Output Total 200 Balance 420 - Medications Medications: Current Medications Acetylcysteine (Acetylcysteine 20%) 3 ml INH BID [facility] Last Admin: 08/09/18 13:03 Dose: Not Given Arformoterol Tartrate (Brovana) 15 mcg IH [id number] [facility] Last Admin: 08/09/18 07:24 Dose: 15 mcg Aspirin (Ecotrin) 81 mg PO DAILY [facility] Last Admin: 08/09/18 09:44 Dose: 81 mg Atorvastatin Calcium (Lipitor) 10 mg PO DIN [facility] Last Admin: 08/08/18 18:04 Dose: 10 mg Budesonide (Pulmicort Respules) 0.5 mg IH [id number] [facility] Last Admin: 08/09/18 07:24 Dose: 0.5 mg Diltiazem HCl (Cardizem) 30 mg PO QID [facility] Last Admin: 08/09/18 13:46 Dose: 30 mg Docusate Sodium (Colace) 100 mg PO BID [facility] Last Admin: 08/09/18 09:45 Dose: 100 mg Ferrous Sulfate (Feosol) 324 mg PO DAILY [facility] Last Admin: 08/09/18 09:44 Dose: 324 mg Finasteride (Proscar) 5 mg PO DAILY [facility] Last Admin: 08/09/18 09:44 Dose: 5 mg Fluticasone Propionate (Flonase) 1 actuation NS DAILY [facility] Last Admin: 08/09/18 09:43 Dose: 1 puff Folic Acid (Folic Acid) 1 mg PO DAILY [facility] Last Admin: 08/09/18 09:44 Dose: 1 mg Furosemide (Lasix) 20 mg PO DAILY [facility] Last Admin: 08/09/18 09:44 Dose: 20 mg Heparin Sodium (Porcine) (Heparin) 5,000 units SC Q12 [facility]; Protocol Last Admin: 08/09/18 09:45 Dose: 5,000 units Hydromorphone HCl (Dilaudid) 0.5 mg IVP Q6H PRN PRN Reason: Pain, Mild (1-3) Last Admin: 08/09/18 03:28 Dose: 0.5 mg Ceftaroline Fosamil 400 mg/ (Sodium Chloride) 100 mls @ 100 mls/hr IVPB Q12 [facility]; Protocol Last Admin: 08/09/18 09:43 Dose: 100 mls/hr Ipratropium [place] (Atrovent) 0.5 mg IH [id number] [facility] Last Admin: 08/09/18 13:14 Dose: 0.5 mg Lactic Acid (Lac-Hydrin 12% Lotion (225 G)) 1 gm EXT BID [facility] Methylprednisolone (Solu-Medrol) 30 mg IVP Q12 [facility] Last Admin: 08/09/18 09:45 Dose: 30 mg Sucralfate (Carafate Oral Susp) 1 gm PO 0630,1130,1630,2200 [facility] Last Admin: 08/09/18 12:30 Dose: 1 gm Tamsulosin HCl (Flomax) 0.4 mg PO DAILY [facility] Last Admin: 08/09/18 09:44 Dose: 0.4 mg - Labs Labs: 08/09/18 07:00 08/09/18 07:00 PT 14.0 SECONDS (9.4-12.5) H 08/07/18 06:20 INR 1.21 08/07/18 06:20 APTT 29.2 Seconds (25.1-36.5) 08/07/18 06:20 - Constitutional Appears: Non-toxic, No Acute Distress, Chronically Ill - Head Exam Head Exam: ATRAUMATIC, NORMOCEPHALIC - Eye Exam Eye Exam: EOMI, PERRL Pupil Exam: NORMAL ACCOMODATION, PERRL - ENT Exam ENT Exam: Mucous Membranes Moist, Normal External Ear Exam, TM's Normal Bilaterally - Neck Exam Neck Exam: Full ROM, Normal Inspection - Respiratory Exam Respiratory Exam: Clear to Ausculation Bilateral, NORMAL BREATHING PATTERN. ab sent: Rales, Rhonchi, Wheezes - Cardiovascular Exam Cardiovascular Exam: REGULAR RHYTHM, RRR, +S1, +S2 - GI/Abdominal Exam GI & Abdominal Exam: Soft, Normal Bowel Sounds. absent: Distended, Tenderness - Extremities Exam Extremities Exam: absent: Joint Swelling, Pedal Edema Additional comments: skin of the lower extremities are much darker than on other parts of the body. Quality of the skin is parchment like. The left lower leg with cracks in the skin but no obvious signs of cellulitis. Mild pinpoint areas of tenderness in the lower extremities bilaterally although left worse than right. Signs of chronic venous stasis. - Neurological Exam Neurological Exam: Alert, Awake, CN II-XII Intact, Oriented x3 - Psychiatric Exam Psychiatric exam: Normal Affect, Normal Mood - Skin Additional comments: As above. Assessment and Plan - Assessment and Plan (Free Text) Assessment: 83 yo AA male with pain in the bilateral lower extremities. The [place] [facility] [place] Extensive medical history that includes lung Cancer, COPD, BPH, and CKD. It appears he had followed with Dr. Mario Chawla for Oncology. There are signs of chronic venous stasis in both lower extremities although the left is worse than the right. Minimal signs of cellulitis. No signs of DVT in testing. I suspect significant arterial vascular disease in the lower extremities especially left leg more than the right. Started on renally adjusted Teflaro for antibiotic therapy. If cultures negative, will deescalate antibiotics. Deescalate to Rocephin alone. Supportive care. Thank you for allowing me to participate in the care of the patient, we will follow with you.
--- NOTE | 2018-08-09 15:32 | US ---
PROCEDURE: Lower extremity MAYELIN exam HISTORY: Peripheral vascular disease with pain and claudication. Ex-smoker. PHYSICIAN(S): Haseeb Elder MD. FINDINGS: The right resting MAYELIN is mildly abnormal, 0.75. The left resting MAYELIN is relatively normal, 0.9 The brachial systolic pressures are symmetric. The high thigh PVR waveforms are relatively normal and symmetric. There is a 21 mm difference between the high thigh pressures, lower on the right. The left calf PVR waveform is normal and augments normally. No pressure gradient is seen. The right calf PVR waveform is moderately blunted. This is suggestive of right SFA occlusive disease The right ankle and metatarsal waveforms are moderately blunted. The left ankle and metatarsal waveforms are IMPRESSION: 1. Mildly abnormal right MAYELIN at rest. 2. Right SFA occlusive disease.
[2018-08-09] MEDS: cefTRIAXone 1 gm 1 GM/100 ML BAG IVPB SCH (17:18)
[2018-08-09] MEDS: Ammonium Lactate 12% Lotion (225 g) EXT SCH (17:19)
[2018-08-10] MEDS: Ipratropium 0.02% Inhal Soln (0.5 mg/2.5 ml) UD IH SCH ×4 (02:30→19:51)
[2018-08-10] MEDS: Sucralfate 1 gm/10 ml Oral Susp UD PO SCH ×4 (06:19→21:08)
[2018-08-10] MEDS: Acetylcysteine 20% Inhal Soln (4ml) INH SCH ×3 (07:29→19:51)
[2018-08-10] MEDS: Arformoterol 15 mcg/2 ml Inh Sol IH SCH ×2 (07:30→19:51)
[2018-08-10] MEDS: Budesonide 0.5 mg/2 ml Inhal Susp UD IH SCH ×2 (07:30→19:51)
[2018-08-10 07:57] LABS: ALBUMIN 3.2 g/dL (3.0-4.8); CALCIUM 8.8 mg/dL (8.4-10.5)
--- NOTE | 2018-08-10 08:35 | CP.PCM.PN ---
<MarionCorrine - Last Filed: 08/10/18 08:37> Subjective - Date & Time of Evaluation Date of Evaluation: 08/10/18 Time of Evaluation: 08:31 - Subjective Subjective: Podiatry Progress Note: Dr. Gordon 83M patient seen and examined at bedside for b/l xerosis. Patient states that he feels well today. Patient resting comfortably and in NAD. He denies any other pedal complaints at this time. He reports occasional cramping to his b/l lower extremities, however currently he is in no discomfort. Denies N/V/F/SOB/CP. Objective - Vital Signs/Intake and Output Vital Signs (last 24 hours): Temp Pulse Resp BP Pulse Ox 97.6 F 69 18 116/54 L 97 08/10/18 07:00 08/10/18 07:00 08/10/18 07:00 08/10/18 07:00 08/10/18 07:00 Intake and Output: 08/10/18 08/10/18 06:59 18:59 Output Total 400 Balance -400 - Medications Medications: Current Medications Acetylcysteine (Acetylcysteine 20%) 3 ml INH BID [facility] Last Admin: 08/10/18 07:29 Dose: 3 ml Arformoterol Tartrate (Brovana) 15 mcg IH [id number] [facility] Last Admin: 08/10/18 07:30 Dose: 15 mcg Aspirin (Ecotrin) 81 mg PO DAILY [facility] Last Admin: 08/09/18 09:44 Dose: 81 mg Atorvastatin Calcium (Lipitor) 10 mg PO DIN [facility] Last Admin: 08/09/18 17:18 Dose: 10 mg Budesonide (Pulmicort Respules) 0.5 mg IH [id number] [facility] Last Admin: 08/10/18 07:30 Dose: 0.5 mg Diltiazem HCl (Cardizem) 30 mg PO QID [facility] Last Admin: 08/09/18 22:35 Dose: 30 mg Docusate Sodium (Colace) 100 mg PO BID [facility] Last Admin: 08/09/18 17:18 Dose: 100 mg Ferrous Sulfate (Feosol) 324 mg PO DAILY [facility] Last Admin: 08/09/18 09:44 Dose: 324 mg Finasteride (Proscar) 5 mg PO DAILY [facility] Last Admin: 08/09/18 09:44 Dose: 5 mg Fluticasone Propionate (Flonase) 1 actuation NS DAILY [facility] Last Admin: 08/09/18 09:43 Dose: 1 puff Folic Acid (Folic Acid) 1 mg PO DAILY [facility] Last Admin: 08/09/18 09:44 Dose: 1 mg Furosemide (Lasix) 20 mg PO DAILY [facility] Last Admin: 08/09/18 09:44 Dose: 20 mg Heparin Sodium (Porcine) (Heparin) 5,000 units SC Q12 [facility]; Protocol Last Admin: 08/09/18 22:31 Dose: 5,000 units Hydromorphone HCl (Dilaudid) 0.5 mg IVP Q6H PRN PRN Reason: Pain, Mild (1-3) Last Admin: 08/09/18 03:28 Dose: 0.5 mg Ceftriaxone Sodium (Rocephin 1 Gram Ivpb) 1 gm in 100 mls @ 100 mls/hr IVPB DAILY [facility]; Protocol Last Admin: 08/09/18 17:18 Dose: 100 mls/hr Ipratropium [place] (Atrovent) 0.5 mg IH [id number] [facility] Last Admin: 08/10/18 07:30 Dose: 0.5 mg Lactic Acid (Lac-Hydrin 12% Lotion (225 G)) 1 gm EXT BID [facility] Last Admin: 08/09/18 17:19 Dose: 1 applic Methylprednisolone (Solu-Medrol) 30 mg IVP Q12 [facility] Last Admin: 08/09/18 22:30 Dose: 30 mg Sucralfate (Carafate Oral Susp) 1 gm PO 0630,1130,1630,2200 [facility] Last Admin: 08/10/18 06:19 Dose: 1 gm Tamsulosin HCl (Flomax) 0.4 mg PO DAILY [facility] Last Admin: 08/09/18 09:44 Dose: 0.4 mg - Labs Labs: 08/09/18 07:00 08/10/18 07:00 PT 14.0 SECONDS (9.4-12.5) H 08/07/18 06:20 INR 1.21 08/07/18 06:20 APTT 29.2 Seconds (25.1-36.5) 08/07/18 06:20 - Constitutional Appears: Well, Non-toxic, No Acute Distress - Head Exam Head Exam: ATRAUMATIC, NORMOCEPHALIC - Extremities Exam Additional comments: RLE focused exam: VASC: DP/PT are faintly palpable 1/4 bilaterally, Cap refill about 4 seconds to all digits, Temp gradient is warm to cool from proximal to distal, no edema appreciated MSK: Mild on palpation the L sheppard of tibia. Muscle power intact 5/5 to all groups. B/L diffuse arthritic changes. B/L pes planus. NEURO: Gross and protective sensations are intact b/l. DERM: B/L extensive xerosis extends up to the tibial tuberosity with skin changes and hyper pigmentation consistent with Chronic venous insufficiency L>R. - Neurological Exam Neurological Exam: Alert, Awake, Oriented x3 - Psychiatric Exam Psychiatric exam: Normal Affect, Normal Mood - Skin Skin Exam: Dry Assessment and Plan - Assessment and Plan (Free Text) Assessment: 83 yo male patient seen and evaluated for xerosis to b/l, PVD and chronic venous insufficiency. Plan: Patient seen and evaluated at bedside with Dr. Gordon Patient labs, chart and vitals reviewed; Afebrile, absent leukocytosis B/L LE venous duplex: No evidence of DVT Rx; Ammonium lactate 12% lotion topical BID to be applied to B/L extremities Explained to the patient that his LE problem is mainly vascular. No podiatric surgical intervention needed Podiatry to sign off at this time. <Jamie Gordon - Last Filed: 08/10/18 12:40> Objective - Vital Signs/Intake and Output Vital Signs (last 24 hours): Temp Pulse Resp BP Pulse Ox 97.6 F 69 18 139/69 97 08/10/18 07:00 08/10/18 07:00 08/10/18 07:00 08/10/18 11:23 08/10/18 07:00 Intake and Output: 08/10/18 08/10/18 06:59 18:59 Output Total 400 Balance -400 - Medications Medications: Current Medications Acetylcysteine (Acetylcysteine 20%) 3 ml INH BID [facility] Last Admin: 08/10/18 07:29 Dose: 3 ml Arformoterol Tartrate (Brovana) 15 mcg IH [id number] [facility] Last Admin: 08/10/18 07:30 Dose: 15 mcg Aspirin (Ecotrin) 81 mg PO DAILY [facility] Last Admin: 08/10/18 11:22 Dose: 81 mg Atorvastatin Calcium (Lipitor) 10 mg PO DIN [facility] Last Admin: 08/09/18 17:18 Dose: 10 mg Budesonide (Pulmicort Respules) 0.5 mg IH [id number] [facility] Last Admin: 08/10/18 07:30 Dose: 0.5 mg Diltiazem HCl (Cardizem) 30 mg PO QID [facility] Last Admin: 08/10/18 11:23 Dose: 30 mg Docusate Sodium (Colace) 100 mg PO BID [facility] Last Admin: 08/10/18 11:22 Dose: 100 mg Ferrous Sulfate (Feosol) 324 mg PO DAILY [facility] Last Admin: 08/10/18 11:22 Dose: 324 mg Finasteride (Proscar) 5 mg PO DAILY [facility] Last Admin: 08/10/18 11:38 Dose: 5 mg Fluticasone Propionate (Flonase) 1 actuation NS DAILY [facility] Last Admin: 08/10/18 11:38 Dose: 1 puff Folic Acid (Folic Acid) 1 mg PO DAILY [facility] Last Admin: 08/10/18 11:38 Dose: 1 mg Furosemide (Lasix) 20 mg PO DAILY [facility] Last Admin: 08/10/18 11:23 Dose: 20 mg Heparin Sodium (Porcine) (Heparin) 5,000 units SC Q12 [facility]; Protocol Last Admin: 08/10/18 11:19 Dose: 5,000 units Hydromorphone HCl (Dilaudid) 0.5 mg IVP Q6H PRN PRN Reason: Pain, Mild (1-3) Last Admin: 08/09/18 03:28 Dose: 0.5 mg Ceftriaxone Sodium (Rocephin 1 Gram Ivpb) 1 gm in 100 mls @ 100 mls/hr IVPB DAILY [facility]; Protocol Last Admin: 08/10/18 11:18 Dose: 100 mls/hr Ipratropium [place] (Atrovent) 0.5 mg IH [id number] [facility] Last Admin: 08/10/18 07:30 Dose: 0.5 mg Lactic Acid (Lac-Hydrin 12% Lotion (225 G)) 1 gm EXT BID [facility] Last Admin: 08/10/18 11:32 Dose: 1 applic Methylprednisolone (Solu-Medrol) 30 mg IVP Q12 [facility] Last Admin: 08/10/18 11:19 Dose: 30 mg Sucralfate (Carafate Oral Susp) 1 gm PO 0630,1130,1630,2200 [facility] Last Admin: 08/10/18 11:22 Dose: 1 gm Tamsulosin HCl (Flomax) 0.4 mg PO DAILY [facility] Last Admin: 08/10/18 11:22 Dose: 0.4 mg - Labs Labs: 08/09/18 07:00 08/10/18 07:00 PT 14.0 SECONDS (9.4-12.5) H 08/07/18 06:20 INR 1.21 08/07/18 06:20 APTT 29.2 Seconds (25.1-36.5) 08/07/18 06:20 Attending/Attestation - Attestation I have personally seen and examined this patient.: Yes I have fully participated in the care of the patient.: Yes I have reviewed all pertinent clinical information, including history, physical exam and plan: Yes
[2018-08-10] MEDS: cefTRIAXone 1 gm 1 GM/100 ML BAG IVPB SCH (11:18)
[2018-08-10] MEDS: MethylPREDNISolone 40 mg Vial IVP SCH ×2 (11:19→21:10)
[2018-08-10] MEDS: Ammonium Lactate 12% Lotion (225 g) EXT SCH ×2 (11:32→17:33)
[2018-08-10] MEDS: Fluticasone Nasal 50 mcg/Spray NS SCH (11:38)
--- NOTE | 2018-08-10 12:35 | PN ---
DATE: 08/09/2018 SUBJECTIVE: The patient was seen and examined at the bedside. Looking comfortable sitting on the chair. Leg pain is better. According to him last night he had episode of leg pain, but now he is better. No coughing. No shortness of breath. No hematuria. No hematochezia. No nausea, vomiting, or diarrhea. PHYSICAL EXAMINATION: VITAL SIGNS: Temperature 98.6, blood pressure 130/60, pulse oximetry 64, respiratory rate 18. HEENT: Head normocephalic and atraumatic. Eyes PERRLA. Extraocular movements intact. Conjunctivae clear. Nose patent. Mucous membrane moist. NECK: Supple. No carotid bruit. No JVD or thyromegaly. CHEST: Bilaterally symmetrical. HEART: S1, S2 positive. LUNGS: Clear to auscultation. ABDOMEN: Soft. Bowel sounds present. No organomegaly. EXTREMITIES: No edema. No cyanosis. Chronic changes to bilateral lower extremities. NEUROLOGIC: The patient awake, alert. Moving all four extremities. No focal deficit. MEDICATIONS: Mucomyst, aspirin, Lipitor, Pulmicort, Cardizem, Flonase, folic acid, Lasix, heparin, Dilaudid, Solu-Medrol, Flomax. LABORATORY DATA: White blood cell 8.5, hemoglobin 9.9, hematocrit 31.8, platelets 444. Sodium 136, potassium 5.1, BUN 57, creatinine 1.8, glucose 123, PSA is 1.73. ASSESSMENT AND PLAN: Mr. Enrike Bejarano is an 83-year-old male with chronic obstructive lung disease, unresectable lung cancer, cellulitis of the lower extremity, history of renal insufficiency, benign prostatic hyperplasia, failed outpatient treatment and failed [facility] treatment, history of psoriasis, hypertension, antibiotics as per Infectious Disease, tapering dose of steroid, inhaled bronchodilators, gastrointestinal and deep venous thrombosis prophylaxis. As per Pulmonary, the patient needs followup CAT scan as outpatient. Appreciate Gastrointestinal and Pulmonary input. Extremity ultrasound is done. According to Dr. Haseeb Elder mildly abnormal right ankle brachial index at rest, right superficial femoral artery occlusive disease. Out of bed, physical therapy. We will follow up. Jessica Cartagena MD JAVIER
--- NOTE | 2018-08-10 13:47 | PN ---
DATE: 08/08/2018 SUBJECTIVE: The patient was seen and examined at bedside on 08/08/2018 and looking comfortable. No fever. No chills. No nausea, vomiting or diarrhea. Leg pain is getting off and on. No shortness of breath. PHYSICAL EXAMINATION: VITAL SIGNS: Blood pressure 125/60, pulse 80, temperature 98.2, respiratory rate 18 and oxygen saturation 99% on nasal canula. HEENT: Head normocephalic, atraumatic. Eyes, PERRLA. Extraocular muscles intact. Conjunctivae clear. Nose patent. Mucous membranes moist. NECK: Supple. No carotid bruits. No JVD or thyromegaly. CHEST: Bilaterally symmetrical. HEART: S1, S2 positive. LUNGS: Clear to auscultation. ABDOMEN: Soft, but no organomegaly. EXTREMITIES: Trace edema. Chronic skin changes to bilateral lower extremities. NEUROLOGIC: Awake, alert. Follows simple commands. Moving all four extremities. Cranial nerves II through XII are grossly intact. MEDICATIONS: Mucomyst, Brovana, aspirin, Lipitor, Pulmicort, ceftaroline, ferrous sulfate, Proscar, Flonase, folic acid, Lasix, heparin, Atrovent, Solu-Medrol, Kayexalate and Flomax. LABORATORY DATA: White blood cell 5.5, hemoglobin 9.8, hematocrit 31.5. Sodium 136, potassium 5.4, BUN 53, creatinine 1.8. ASSESSMENT AND PLAN: Mr. Enrike Bejarano is an 83-year-old male with multiple medical problems, chronic lung disease; unresectable lung cancer; cellulitis of the lower extremity, getting antibiotics, pain is getting better; history of renal insufficiency; hypertension; benign prostatic hyperplasia; history of psoriasis, getting a tapering dose of steroid. Pulmonary and Infectious Disease is on the case. GI and DVT prophylaxis. Repeat labs. We will follow up. Jessica Cartagena MD
--- NOTE | 2018-08-10 16:31 | CP.PCM.PN ---
Subjective - Date & Time of Evaluation Date of Evaluation: 08/10/18 Time of Evaluation: 15:00 - Subjective Subjective: Infectious Disease Follow Up: August 10, 2018 83 yo male with extensive past medical history that includes lung cancer, COPD, BPH, and chronic kidney disease recently discharged from [facility]. The patient comp lains of bilateral lower extremity pain with left greater than right. The patient is awake and alert. Currently afebrile. Venous Duplex was negative for DVT. Patient claims pain up to 10 out of 10 that hits only intermittently throughout the day. Currently the patient states pain is 0 but that he experiences intermittent pain as low as 5 out of 10 up to 10 out of 10. No new complaints today. Objective - Vital Signs/Intake and Output Vital Signs (last 24 hours): Temp Pulse Resp BP Pulse Ox 98 F 78 18 132/62 96 08/10/18 14:00 08/10/18 14:00 08/10/18 14:00 08/10/18 14:00 08/10/18 14:00 Intake and Output: 08/10/18 08/10/18 06:59 18:59 Output Total 400 Balance -400 - Medications Medications: Current Medications Acetylcysteine (Acetylcysteine 20%) 3 ml INH BID [facility] Last Admin: 08/10/18 07:29 Dose: 3 ml Arformoterol Tartrate (Brovana) 15 mcg IH [id number] [facility] Last Admin: 08/10/18 07:30 Dose: 15 mcg Aspirin (Ecotrin) 81 mg PO DAILY [facility] Last Admin: 08/10/18 11:22 Dose: 81 mg Atorvastatin Calcium (Lipitor) 10 mg PO DIN [facility] Last Admin: 08/09/18 17:18 Dose: 10 mg Budesonide (Pulmicort Respules) 0.5 mg IH [id number] [facility] Last Admin: 08/10/18 07:30 Dose: 0.5 mg Diltiazem HCl (Cardizem) 30 mg PO QID [facility] Last Admin: 08/10/18 15:39 Dose: 30 mg Docusate Sodium (Colace) 100 mg PO BID [facility] Last Admin: 08/10/18 11:22 Dose: 100 mg Ferrous Sulfate (Feosol) 324 mg PO DAILY [facility] Last Admin: 08/10/18 11:22 Dose: 324 mg Finasteride (Proscar) 5 mg PO DAILY [facility] Last Admin: 08/10/18 11:38 Dose: 5 mg Fluticasone Propionate (Flonase) 1 actuation NS DAILY [facility] Last Admin: 08/10/18 11:38 Dose: 1 puff Folic Acid (Folic Acid) 1 mg PO DAILY [facility] Last Admin: 08/10/18 11:38 Dose: 1 mg Furosemide (Lasix) 20 mg PO DAILY [facility] Last Admin: 08/10/18 11:23 Dose: 20 mg Heparin Sodium (Porcine) (Heparin) 5,000 units SC Q12 [facility]; Protocol Last Admin: 08/10/18 11:19 Dose: 5,000 units Hydromorphone HCl (Dilaudid) 0.5 mg IVP Q6H PRN PRN Reason: Pain, Mild (1-3) Last Admin: 08/09/18 03:28 Dose: 0.5 mg Ceftriaxone Sodium (Rocephin 1 Gram Ivpb) 1 gm in 100 mls @ 100 mls/hr IVPB DAILY [facility]; Protocol Last Admin: 08/10/18 11:18 Dose: 100 mls/hr Ipratropium [place] (Atrovent) 0.5 mg IH [id number] [facility] Last Admin: 08/10/18 14:08 Dose: 0.5 mg Lactic Acid (Lac-Hydrin 12% Lotion (225 G)) 1 gm EXT BID [facility] Last Admin: 08/10/18 11:32 Dose: 1 applic Methylprednisolone (Solu-Medrol) 30 mg IVP Q12 [facility] Last Admin: 08/10/18 11:19 Dose: 30 mg Sucralfate (Carafate Oral Susp) 1 gm PO 0630,1130,1630,2200 [facility] Last Admin: 08/10/18 15:39 Dose: 1 gm Tamsulosin HCl (Flomax) 0.4 mg PO DAILY [facility] Last Admin: 08/10/18 11:22 Dose: 0.4 mg - Labs Labs: 08/09/18 07:00 08/10/18 07:00 PT 14.0 SECONDS (9.4-12.5) H 08/07/18 06:20 INR 1.21 08/07/18 06:20 APTT 29.2 Seconds (25.1-36.5) 08/07/18 06:20 - Constitutional Appears: Non-toxic, No Acute Distress, Chronically Ill - Head Exam Head Exam: ATRAUMATIC, NORMOCEPHALIC - Eye Exam Eye Exam: EOMI, PERRL Pupil Exam: NORMAL ACCOMODATION, PERRL - ENT Exam ENT Exam: Mucous Membranes Moist, Normal External Ear Exam, TM's Normal Bilaterally - Neck Exam Neck Exam: Full ROM, Normal Inspection - Respiratory Exam Respiratory Exam: Clear to Ausculation Bilateral, NORMAL BREATHING PATTERN. absent: Rales, Rhonchi, Wheezes - Cardiovascular Exam Cardiovascular Exam: REGULAR RHYTHM, RRR, +S1, +S2 - GI/Abdominal Exam GI & Abdominal Exam: Soft, Normal Bowel Sounds. absent: Distended, Tenderness - Extremities Exam Extremities Exam: absent: Joint Swelling, Pedal Edema Additional comments: skin of the lower extremities are much darker than on other parts of the body. Quality of the skin is parchment like. The left lower leg with cracks in the skin but no obvious signs of cellulitis. Mild pinpoint areas of tenderness in the lower extremities bilaterally although left worse than right. Signs of chronic venous stasis. - Neurological Exam Neurological Exam: Alert, Awake, CN II-XII Intact, Oriented x3 - Psychiatric Exam Psychiatric exam: Normal Affect, Normal Mood - Skin Additional comments: As above. Assessment and Plan - Assessment and Plan (Free Text) Assessment: 83 yo AA male with pain in the bilateral lower extremities. The patient was recently in [facility]. Extensive medical history that includes lung Cancer, COPD, BPH, and CKD. It appears he had followed with Dr. Mario Chawla for Oncology. There are signs of chronic venous stasis in both lower extremities although the left is worse than the right. Minimal signs of cellulitis. No signs of DVT in testing. I suspect significant arterial vascular disease in the lower extremities especially left leg more than the right. Started on renally adjusted Teflaro for antibiotic therapy. If cultures negative, will deescalate antibiotics. Deescalate to Rocephin alone. When ready for discharge, can utilize oral Keflex for 7 days more at 500mg BID. Supportive care. Thank you for allowing me to participate in the care of the patient, we will follow with you.
--- NOTE | 2018-08-10 21:23 | CARD ---
APPROVED REPORT Date of service: 08/10/2018 EXAM: Two-dimensional and M-mode echocardiogram with Doppler and color Doppler. INDICATION CHF 2D DIMENSIONS IVSd0.7 (0.7-1.1cm)LVDd5.1 (3.9-5.9cm) PWd1.1 (0.7-1.1cm)LVDs3.2 (2.5-4.0cm) FS (%) 38.4 %LVEF (%)68.2 (>50%) M-Mode DIMENSIONS Left Atrium (MM)4.30 (2.5-4.0cm)Aortic Root3.50 (2.2-3.7cm) Aortic Cusp Exc.2.00 (1.5-2.0cm) Aortic Valve AoV Peak Vretslvw056.0cm/Dara Peak GR.12mmHgAI P 1/2 [id number] Mitral Valve MV E Clfozqzv78.8cm/sMV A Ztdwworw75.8cm/sE/A ratio0.6 TDI Lateral E' Peak V7.99cm/sMedial E' Peak V7.51cm/sE/Lateral E'7.1 E/Medial E'7.6 Tricuspid Valve TR Peak Enygvmel129oi/sRAP [id number] Peak Gr.64mmHg [id number] LEFT VENTRICLE The left ventricle is normal size. There is normal left ventricular wall thickness. The left ventricular function is normal. The left ventricular ejection fraction is within the normal range. There is normal LV segmental wall motion. Transmitral Doppler flow pattern is Grade I-abnormal relaxation pattern. RIGHT VENTRICLE The right ventricle is mildly dilated. There is normal right ventricular wall thickness. The right ventricular systolic function is normal. ATRIA The left atrium is mildly dilated. The right atrium is mildly dilated. AORTIC VALVE The aortic valve is mildly thickened. There is mild to moderate aortic regurgitation. There is no aortic valvular stenosis. MITRAL VALVE The mitral valve is mildly thickened. There is no mitral valve regurgitation noted. There is no mitral valve stenosis. TRICUSPID VALVE There is moderate tricuspid regurgitation. There is severe pulmonary hypertension. PULMONIC VALVE There is mild pulmonic valvular regurgitation. GREAT VESSELS The aortic root is normal in size. <Conclusion> There is normal left ventricular wall thickness. The left ventricular function is normal. The left ventricular ejection fraction is within the normal range. There is normal LV segmental wall motion. Transmitral Doppler flow pattern is Grade I-abnormal relaxation pattern. There is mild to moderate aortic regurgitation. There is moderate tricuspid regurgitation. There is severe pulmonary hypertension.
[2018-08-10] MEDS ORDERED: MethylPREDNISolone 40 mg Vial IVP SCH (22:41)
--- NOTE | 2018-08-11 01:04 | PN ---
DATE: 08/10/2018 PULMONARY PROGRESS NOTE REFERRING PHYSICIAN: Jessica Cartagena MD SUBJECTIVE: The patient is sitting up in chair, feels okay. Shortness of breath and cough improved, doing much better. No overnight events reported. No headache, chest pain, nausea, vomiting, or leg pain reported. Bilateral left leg edema improved. OBJECTIVE: GENERAL: No acute distress. VITAL SIGNS: Temperature 98, pulse 78, blood pressure 132/62, pulse ox 96%, respirations 18. HEENT: Moist mucous membranes. Crowded airway. Mallampati is 4. NECK: Supple. No JVD. LUNGS: Fair airflow. Few rhonchi. CARDIAC: S1, S2. ABDOMEN: Soft, nontender. No organomegaly. EXTREMITIES: Cellulitis on bilateral lower extremities. NEUROLOGIC: Awake, alert, follows simple commands. LABORATORY RESULTS: Reviewed. Sodium 136, potassium 4.8, chloride 102, carbon dioxide 27, anion gap 12, BUN 58, creatinine 1.8, GFR 44, random glucose 113, calcium 8.8, bilirubin 0.2, AST 50, ALT 29, alk phos 73, albumin 3.2, globulin 3.2, A/G ratio 1, protein 6.5. DIAGNOSTIC DATA: Reviewed. Echocardiogram, pending results. MEDICATIONS: Reviewed. Lactic acid 1 g twice a day lotion application twice a day, ceftriaxone 1 g IV piggyback daily added to medication. No other changes since yesterday. IMPRESSION AND PLAN: Chronic obstructive lung disease, unresectable lung cancer, cellulitis of lower extremity, renal insufficiency, benign prostatic hyperplasia, psoriasis, hypertension. Pulmonary point of view, pending echocardiogram results. Continue inhaled bronchodilators, gastric prophylaxis, DVT prophylaxis. Antibiotics as per Infectious Disease. Continue IV steroids. Recommend followup CAT scan, full PFT and sleep study as outpatient following discharge. Followup labs in the morning. This patient was examined with Dr. Banegas and discussedassessment and plan as described above. Thank you for this consult, and we will follow with you. Yadi Ortega APN Bubba Banegas MD [facility] # [id number] JAVIER
[2018-08-11] MEDS: Ipratropium 0.02% Inhal Soln (0.5 mg/2.5 ml) UD IH SCH ×4 (01:08→19:26)
[2018-08-11] MEDS: Sucralfate 1 gm/10 ml Oral Susp UD PO SCH ×4 (05:37→22:51)
[2018-08-11 07:10] LABS: HEMOGLOBIN 10.2 g/dL (14.0-18.0); MEAN CORPUSCULAR HEMOGLOBIN 30.4 pg (25.0-35.0); MEAN CORPUSCULAR HGB CONC 31.3 g/dl (31.0-37.0); MEAN PLATELET VOLUME 9.2 fl (7.0-11.0); RBC 3.36 10^6/uL (3.5-6.1); RED CELL DISTRIBUTION WIDTH 16.2 % (11.5-14.5); WHITE BLOOD COUNT 10.5 10^3/uL (4.5-11.0)
[2018-08-11 07:21] LABS: ALB/GLOB RATIO 0.9 (1.1-1.8); ALBUMIN 3.3 g/dL (3.0-4.8)
[2018-08-11] MEDS: Budesonide 0.5 mg/2 ml Inhal Susp UD IH SCH ×2 (08:09→19:26)
[2018-08-11] MEDS: Arformoterol 15 mcg/2 ml Inh Sol IH SCH ×2 (08:09→19:26)
[2018-08-11] MEDS: Acetylcysteine 20% Inhal Soln (4ml) INH SCH ×3 (08:10→19:26)
[2018-08-11] MEDS: cefTRIAXone 1 gm 1 GM/100 ML BAG IVPB SCH (09:54)
[2018-08-11] MEDS: Ammonium Lactate 12% Lotion (225 g) EXT SCH ×2 (10:13→18:38)
[2018-08-11] MEDS: Fluticasone Nasal 50 mcg/Spray NS SCH (10:14)
--- NOTE | 2018-08-11 15:53 | PN ---
DATE: 08/11/2018 PULMONARY PROGRESS NOTE REFERRING PHYSICIAN: Dr. Cartagena. SUBJECTIVE: He is out of bed to chair. Night was unremarkable. Feels better. No headache, no rhinitis. Decreased cough. No nausea, no vomiting, no diarrhea. Decreased leg swelling. OBJECTIVE: GENERAL: No acute distress. VITAL SIGNS: Temperature is 98, heart rate is 90, respiratory rate is 18, blood pressure 125/80, pulse of 98% on 2 liters nasal cannula. HEENT: Moist mucous membranes. Crowded airway. Mallampati score is 4. NECK: Supple. No JVD. LUNGS: Have fair airflow rhonchi. HEART: S1 and S2. ABDOMEN: Soft, nontender. No organomegaly. EXTREMITIES: Decreased edema. NEUROLOGICAL: Awake, alert, follows simple commands. MEDICATIONS: He is on Mucomyst inhaled twice a day, Atrovent inhaled every 6 hours, Brovana inhaled twice a day, Carafate 1 g four times a day, Cardizem 30 mg four times a day, Colace 100 mg twice a day, Dilaudid 0.5 mg every 6 hours p.r.n., Ecotrin 81 mg daily, ferrous sulfate 325 mg daily, Flomax 0.4 mg daily, Flonase 1 spray to each nostril daily, folic acid 1 mg daily, insulin coverage, lactic acid to affected area twice a day, Lasix 20 mg daily, Lipitor 10 mg daily, Proscar 45 mg daily, Pulmicort inhaled twice a day, Rocephin 1 g daily, Solu-Medrol 20 mg every 12 hours. LABORATORY DATA: Shows hemoglobin 10.2, hematocrit 32.6, WBC 10.5, platelet count is 627. Sodium 136, potassium 5.2, chloride 103, bicarbonate 26, BUN 55, creatinine 1.8, glucose 109, calcium is 9.0. AST 40, ALT 32, alk phos is 73. Albumin is 3.3. Microbiology, blood culture, there is no growth. IMPRESSION AND PLAN: Chronic obstructive lung disease, unresectable lung cancer, cellulitis of lower extremity, renal insufficiency, benign prostatic hypertrophy, psoriasis, hypertension. Had echocardiogram done yesterday, which shows right ventricle systolic pressure is 74, left ventricle function is normal, mild valvular heart disease. We will continue IV and inhaled bronchodilator. Continue antibiotics. Gastric prophylaxis, deep venous thrombosis prophylaxis. Podiatry followup. We will recommend to attend a sleep study upon discharge as outpatient. He should be followed up with Oncology as outpatient. We will follow with you. Bubba Banegas MD
--- NOTE | 2018-08-11 17:46 | CP.PCM.PN ---
Subjective - Date & Time of Evaluation Date of Evaluation: 08/11/18 Time of Evaluation: 17:00 - Subjective Subjective: Infectious Disease Follow Up: August 11, 2018 83 yo male with extensive past medical history that includes lung cancer, COPD, BPH, and chronic kidney disease recently discharged from [facility]. The patient comp lains of bilateral lower extremity pain with left greater than right. The patient is awake and alert. Currently afebrile. Venous Duplex was negative for DVT. Patient claims pain up to 10 out of 10 that hits only intermittently throughout the day. Currently the patient states pain is 0 but that he experiences intermittent pain as low as 5 out of 10 up to 10 out of 10. No new complaints today. Patient's major problem is his peripheral vascular disease of the lower extremities. The patient cellulitis is essentially resolved at this time. Objective - Vital Signs/Intake and Output Vital Signs (last 24 hours): Temp Pulse Resp BP Pulse Ox 97.3 F L 77 18 134/71 99 08/11/18 14:00 08/11/18 14:00 08/11/18 14:00 08/11/18 14:00 08/11/18 14:00 - Medications Medications: Current Medications Acetylcysteine (Acetylcysteine 20%) 3 ml INH BID [facility] Last Admin: 08/11/18 13:44 Dose: 3 ml Arformoterol Tartrate (Brovana) 15 mcg IH [id number] [facility] Last Admin: 08/11/18 08:09 Dose: 15 mcg Aspirin (Ecotrin) 81 mg PO DAILY [facility] Last Admin: 08/11/18 09:51 Dose: 81 mg Atorvastatin Calcium (Lipitor) 10 mg PO DIN [facility] Last Admin: 08/11/18 16:35 Dose: 10 mg Budesonide (Pulmicort Respules) 0.5 mg IH [id number] [facility] Last Admin: 08/11/18 08:09 Dose: 0.5 mg Diltiazem HCl (Cardizem) 30 mg PO QID [facility] Last Admin: 08/11/18 14:36 Dose: Not Given Docusate Sodium (Colace) 100 mg PO BID [facility] Last Admin: 08/11/18 09:50 Dose: 100 mg Ferrous Sulfate (Feosol) 324 mg PO DAILY [facility] Last Admin: 08/11/18 09:51 Dose: 324 mg Finasteride (Proscar) 5 mg PO DAILY [facility] Last Admin: 08/11/18 09:51 Dose: 5 mg Fluticasone Propionate (Flonase) 1 actuation NS DAILY [facility] Last Admin: 08/11/18 10:14 Dose: 2 puff Folic Acid (Folic Acid) 1 mg PO DAILY [facility] Last Admin: 08/11/18 09:51 Dose: 1 mg Furosemide (Lasix) 20 mg PO DAILY [facility] Last Admin: 08/11/18 09:52 Dose: 20 mg Heparin Sodium (Porcine) (Heparin) 5,000 units SC Q12 [facility]; Protocol Last Admin: 08/11/18 09:54 Dose: 5,000 units Hydromorphone HCl (Dilaudid) 0.5 mg IVP Q6H PRN PRN Reason: Pain, Mild (1-3) Last Admin: 08/09/18 03:28 Dose: 0.5 mg Ceftriaxone Sodium (Rocephin 1 Gram Ivpb) 1 gm in 100 mls @ 100 mls/hr IVPB DAILY [facility]; Protocol Last Admin: 08/11/18 09:54 Dose: 100 mls/hr Ipratropium [place] (Atrovent) 0.5 mg IH [id number] [facility] Last Admin: 08/11/18 13:44 Dose: 0.5 mg Lactic Acid (Lac-Hydrin 12% Lotion (225 G)) 1 gm EXT BID [facility] Last Admin: 08/11/18 10:13 Dose: 1 applic Methylprednisolone (Solu-Medrol) 20 mg IVP DAILY [facility] Sucralfate (Carafate Oral Susp) 1 gm PO 0630,1130,1630,2200 [facility] Last Admin: 08/11/18 16:35 Dose: 1 gm Tamsulosin HCl (Flomax) 0.4 mg PO DAILY [facility] Last Admin: 08/11/18 09:51 Dose: 0.4 mg - Labs Labs: 08/11/18 06:30 08/11/18 06:30 PT 14.0 SECONDS (9.4-12.5) H 08/07/18 06:20 INR 1.21 08/07/18 06:20 APTT 29.2 Seconds (25.1-36.5) 08/07/18 06:20 - Constitutional Appears: Non-toxic, No Acute Distress, Chronically Ill - Head Exam Head Exam: ATRAUMATIC, NORMOCEPHALIC - Eye Exam Eye Exam: EOMI, PERRL Pupil Exam: NORMAL ACCOMODATION, PERRL - ENT Exam ENT Exam: Mucous Membranes Moist, Normal External Ear Exam, TM's Normal Bilaterally - Neck Exam Neck Exam: Full ROM, Normal Inspection - Respiratory Exam Respiratory Exam: Clear to Ausculation Bilateral, NORMAL BREATHING PATTERN. absent: Rales, Rhonchi, Wheezes - Cardiovascular Exam Cardiovascular Exam: REGULAR RHYTHM, RRR, +S1, +S2 - GI/Abdominal Exam GI & Abdominal Exam: Soft, Normal Bowel Sounds. absent: Distended, Tenderness - Extremities Exam Extremities Exam: absent: Joint Swelling, Pedal Edema Additional comments: skin of the lower extremities are much darker than on other parts of the body. Quality of the skin is parchment like. The left lower leg with cracks in the skin but no obvious signs of cellulitis. Mild pinpoint areas of tenderness in the lower extremities bilaterally although left worse than right. Signs of chronic venous stasis. - Neurological Exam Neurological Exam: Alert, Awake, CN II-XII Intact, Oriented x3 - Psychiatric Exam Psychiatric exam: Normal Affect, Normal Mood - Skin Additional comments: As above. Assessment and Plan - Assessment and Plan (Free Text) Assessment: 83 yo AA male with pain in the bilateral lower extremities. The patient was recently in [facility]. Extensive medical history that includes lung Cancer, COPD, BPH, and CKD. It appears he had followed with Dr. Mario Chawla for Oncology. There are signs of chronic venous stasis in both lower extremities although the left is worse than the right. Minimal signs of cellulitis. No signs of DVT in testing. I suspect significant arterial vascular disease in the lower extremi ties especially left leg more than the right. Started on renally adjusted Teflaro for antibiotic therapy. If cultures negative, will deescalate antibiotics. Deescalate to Rocephin alone. When read y for discharge, can utilize oral Keflex for 7 days more at 500mg BID. Supportive care. Thank you for allowing me to participate in the care of the patient, we will follow with you.
[2018-08-12] MEDS: Ipratropium 0.02% Inhal Soln (0.5 mg/2.5 ml) UD IH SCH ×5 (01:14→23:33)
--- NOTE | 2018-08-12 02:27 | PN ---
DATE: 08/11/2018 SUBJECTIVE: The patient was seen and examined on 08/11/2018. Looking comfortable . No nausea, vomiting, or diarrhea. No headache. No dizziness. No swelling of the legs. No chest pain. No palpitation. PHYSICAL EXAMINATION: VITAL SIGNS: Temperature 98, heart rate 90, respiratory rate 18, blood pressure 120/80, pulse oximetry 98%. HEENT: Head is normocephalic, atraumatic. Eyes, PERRLA. Extraocular muscles intact. Conjunctivae clear. Nose patent. Mucous membranes moist. NECK: Supple. No carotid bruits. No JVD or thyromegaly. HEART: S1 and S2 positive. LUNGS: Clear to auscultation. ABDOMEN: Soft. Bowel sounds present. No organomegaly. EXTREMITIES: No edema. No cyanosis. NEUROLOGIC: The patient is awake, alert. Moving all four extremities. No focal deficit. MEDICATIONS: Mucomyst, Atrovent, Brovana, Carafate, Cardizem, Colace, Dilaudid, Ecotrin, ferrous sulfate, Flomax, Flonase, lactic acid, Lipitor, Proscar, Rocephin, and Solu-Medrol. LABORATORY DATA: Hemoglobin 10.2, hematocrit 32.6, white blood cell 10.5, platelets 627. Sodium 136, potassium 5.2, BUN 55, creatinine 1.5. AST 40, ALT 32. ASSESSMENT AND PLAN: Mr. Enrike Bejarano with multiple medical problem, unresectable lung cancer getting treatment from Dr. Chawla. Cellulitis to the lower extremity, chronic obstructive lung disease, renal insufficiency, benign prostatic hypertrophy, psoriasis and hypertension. Had echocardiography done shows the right ventricle systolic pressure is 74. Continue antibiotic. Gastrointestinal and deep venous thrombosis prophylaxis. Repeat labs. We will follow up. Jessica Cartagena MD MTDD
[2018-08-12] MEDS: Sucralfate 1 gm/10 ml Oral Susp UD PO SCH ×5 (06:26→21:53)
[2018-08-12 07:13] LABS: ALB/GLOB RATIO 0.9 (1.1-1.8); ALBUMIN 3.3 g/dL (3.0-4.8); CALCIUM 9.1 mg/dL (8.4-10.5)
[2018-08-12] MEDS: Acetylcysteine 20% Inhal Soln (4ml) INH SCH ×2 (07:53→20:10)
[2018-08-12] MEDS: Budesonide 0.5 mg/2 ml Inhal Susp UD IH SCH ×2 (07:54→20:11)
[2018-08-12] MEDS: Arformoterol 15 mcg/2 ml Inh Sol IH SCH ×2 (07:54→20:11)
--- NOTE | 2018-08-12 09:06 | PN ---
DATE: 08/10/2018 SUBJECTIVE: The patient is an 83 years old male. The patient was seen and examined on the bedside on 08/10/2018, sitting on the chair. Pain is better, but he experienced intermittent pain as low as 5/10, but not 10/10. No fever. No chills. No hematuria or hematochezia. No headache or dizziness. No chest pain or palpitation. PHYSICAL EXAMINATION: VITAL SIGNS: Temperature 98, pulse 78, respiratory rate 18, blood pressure 130/62, pulse oximetry 96. HEENT: Head normocephalic, atraumatic. Eyes PERRLA. Extraocular muscles are intact. Conjunctivae clear. Nose patent. Mucous membranes moist. NECK: Supple. No carotid bruits. No JVD or thyromegaly. CHEST: Bilaterally symmetrical. HEART: S1 and S2 positive. LUNGS: Clear to auscultation. ABDOMEN: Soft. Bowel sounds present. No organomegaly. EXTREMITIES: Positive edema and pigmentation of stasis dermatitis. NEUROLOGIC: The patient is awake and alert. Follows simple commands. MEDICATIONS: Brovana, Ecotrin, atorvastatin, Pulmicort, Colace, Feosol, Proscar, folic acid, furosemide, heparin, Dilaudid, ceftriaxone, Solu-Medrol, Carafate, and Flomax. LABORATORY DATA: White blood cells 8.5, hemoglobin 9.9, hematocrit 31.8, platelets 444. Sodium 136, potassium 4.8, BUN 15, creatinine 1.8, and glucose 113. ASSESSMENT AND PLAN: The patient is an 83-year-old male with renal insufficiency and hyperglycemia, came with bilateral lower extremity pain. The patient was admitted to [facility], got discharged from there and came to [facility], history of nonresectable lung cancer, chronic obstructive lung disease, benign prostatic hyperplasia, chronic kidney disease, has signs of chronic venous stasis in both extremities, although the left is worse than the right; cellulitis sites are getting better. It looks like he has an arterial vascular disease in the lower extremities, especially in the left leg more than the right. The patient getting Teflaro. His cultures are negative as per Infectious Disease, we will deescalate antibiotic Rocephin alone. Needs supportive care. Tapering dose of steroids. Repeat labs. We will follow up. Jessica Cartagena MD JAVIER
[2018-08-12] MEDS ORDERED: MethylPREDNISolone 40 mg Vial IVP SCH (10:00)
[2018-08-12] MEDS: cefTRIAXone 1 gm 1 GM/100 ML BAG IVPB SCH (10:15)
[2018-08-12] MEDS: Fluticasone Nasal 50 mcg/Spray NS SCH (10:18)
[2018-08-12] MEDS: Ammonium Lactate 12% Lotion (225 g) EXT SCH ×2 (10:18→17:07)
--- NOTE | 2018-08-12 12:42 | PN ---
PULMONARY PROGRESS NOTE DATE: 08/12/2018 REFERRING PHYSICIAN: Jessica Cartagena MD SUBJECTIVE: The patient is sitting up at bedside. No acute distress. Reports feeling well today. Reports improvement in cough and shortness of breath. No headache, rhinitis, chest pain, abdominal pain, nausea, vomiting or diarrhea. No complaint of leg pain reported today. PHYSICAL EXAMINATION GENERAL: No acute distress. VITAL SIGNS: Blood pressure 129/56, pulse 92, temperature 98.3, and oxygen saturation 95% on room air. HEENT: Moist mucous membranes. Crowded airway. Mallampati score of 4. NECK: Supple. No JVD. LUNGS: Fair airflow bilaterally. Few crackles in bilateral bases. CARDIOVASCULAR: S1 and S2 audible. ABDOMEN: Soft and nontender. No distension. No organomegaly. EXTREMITIES: Decreased edema bilaterally. NEUROLOGIC: Awake, alert, verbal, and follows simple commands. MEDICATIONS: Reviewed. Mucomyst 3 mL inhalation twice a day, Brovana 15 mcg inhalation every 12 hours, aspirin 81 mg p.o. daily, Lipitor 10 mg at dinner, Pulmicort 0.5 mg inhalation every 12 hours, Rocephin 1 gram daily, Cardizem 30 mg four times a day, Colace 100 mg twice a day, ferrous sulfate 324 mg daily,Proscar 5 mg daily, Flonase 1 spray each nostril daily, folic acid 1 mg daily, Lasix 20 mg daily, heparin 5000 units subcutaneous every 12 hours, Dilaudid 0.5 mg IV push every 6 hours p.r.n., Atrovent 0.5 mg inhalation every 6 hours, lactic acid lotion 1 gram to extremities twice a day, Solu-Medrol 20 mg IV push daily, Carafate 1 gram four times a day and Flomax 0.4 mg p.o. daily. LABORATORY DATA: Reviewed. Sodium 137, potassium 4.6, chloride 105, carbon dioxide 29, anion gap 9, BUN 53, creatinine 1.7, GFR 47, random glucose 83, calcium 9.1, total bilirubin 0.3, AST 47, ALT 36, alkaline phosphatase 71, total protein 6.8, albumin 3.3, globulin 3.5, and albumin-globulin ratio 0.9. IMPRESSION AND PLAN: Chronic obstructive lung disease, unresectable lung cancer, cellulitis of lower extremity, renal insufficiency, benign prostatic hypertrophy, psoriasis, hypertension and mild valvular heart disease. Pulmonary point of view, the patient is doing well. Continue inhaled bronchodilators, IV antibiotics, gastric prophylaxis, and deep venous thrombosis prophylaxis. Continue sleep apnea precaution, head of bed elevated at 45 degrees and Podiatry followup. We recommend the patient have sleep study upon discharge as outpatient. The patient will need to followup with Oncology as outpatient. Need to monitor BUN and creatinine. This patient was seen and examined with Dr. Banegas. Discussed assessment and plan as described above. Thank you for this consult and we will follow with you. Perry Dotson APN Bubba Banegas MD MTDJeff
--- NOTE | 2018-08-12 17:56 | CP.PCM.PN ---
Subjective - Date & Time of Evaluation Date of Evaluation: 08/12/18 Time of Evaluation: 17:00 - Subjective Subjective: Infectious Disease Follow Up: August 12, 2018 83 yo male with extensive past medical history that includes lung cancer, COPD, BPH, and chronic kidney disease recently discharged from [facility]. The patient comp lains of bilateral lower extremity pain with left greater than right. The patient is awake and alert. Currently afebrile. Venous Duplex was negative for DVT. Patient claims pain up to 10 out of 10 that hits only intermittently throughout the day. Currently the patient states pain is 0 but that he experiences intermittent pain as low as 5 out of 10 up to 10 out of 10. No new complaints today. Patient's major problem is his peripheral vascular disease of the lower extremities. The patient cellulitis is essentially resolved at this time. Objective - Vital Signs/Intake and Output Vital Signs (last 24 hours): Temp Pulse Resp BP Pulse Ox 98.3 F 88 20 120/75 95 08/12/18 06:00 08/12/18 17:09 08/12/18 06:00 08/12/18 17:09 08/12/18 06:00 Intake and Output: 08/12/18 08/12/18 06:59 18:59 Intake Total 860 Output Total 750 Balance 110 - Medications Medications: Current Medications Acetylcysteine (Acetylcysteine 20%) 3 ml INH BID [facility] Last Admin: 08/12/18 07:53 Dose: 3 ml Arformoterol Tartrate (Brovana) 15 mcg IH [id number] [facility] Last Admin: 08/12/18 07:54 Dose: 15 mcg Aspirin (Ecotrin) 81 mg PO DAILY [facility] Last Admin: 08/12/18 10:16 Dose: 81 mg Atorvastatin Calcium (Lipitor) 10 mg PO DIN [facility] Last Admin: 08/12/18 17:05 Dose: 10 mg Budesonide (Pulmicort Respules) 0.5 mg IH [id number] [facility] Last Admin: 08/12/18 07:54 Dose: 0.5 mg Diltiazem HCl (Cardizem) 30 mg PO QID [facility] Last Admin: 08/12/18 17:09 Dose: 30 mg Docusate Sodium (Colace) 100 mg PO BID [facility] Last Admin: 08/12/18 17:05 Dose: 100 mg Ferrous Sulfate (Feosol) 324 mg PO DAILY [facility] Last Admin: 12/17/18 10:17 Dose: 324 mg Finasteride (Proscar) 5 mg PO DAILY [facility] Last Admin: 08/12/18 10:17 Dose: 5 mg Fluticasone Propionate (Flonase) 1 actuation NS DAILY [facility] Last Admin: 08/12/18 10:18 Dose: 1 puff Folic Acid (Folic Acid) 1 mg PO DAILY [facility] Last Admin: 08/12/18 10:16 Dose: 1 mg Furosemide (Lasix) 10 mg PO DAILY [facility] Heparin Sodium (Porcine) (Heparin) 5,000 units SC Q12 [facility]; Protocol Last Admin: 08/12/18 10:15 Dose: 5,000 units Hydromorphone HCl (Dilaudid) 0.5 mg IVP Q6H PRN PRN Reason: Pain, Mild (1-3) Last Admin: 08/09/18 03:28 Dose: 0.5 mg Ipratropium [place] (Atrovent) 0.5 mg IH [id number] [facility] Last Admin: 08/12/18 14:38 Dose: 0.5 mg Lactic Acid (Lac-Hydrin 12% Lotion (225 G)) 1 gm EXT BID [facility] Last Admin: 08/12/18 17:07 Dose: 1 applic Prednisone (Prednisone Tab) 10 mg PO DAILY [facility] Sucralfate (Carafate Oral Susp) 1 gm PO 0630,1130,1630,2200 [facility] Last Admin: 08/12/18 17:05 Dose: 1 gm Tamsulosin HCl (Flomax) 0.4 mg PO DAILY [facility] Last Admin: 08/12/18 10:16 Dose: 0.4 mg - Labs Labs: 08/11/18 06:30 08/12/18 06:30 PT 14.0 SECONDS (9.4-12.5) H 08/07/18 06:20 INR 1.21 08/07/18 06:20 APTT 29.2 Seconds (25.1-36.5) 08/07/18 06:20 - Constitutional Appears: Non-toxic, No Acute Distress, Chronically Ill - Head Exam Head Exam: ATRAUMATIC, NORMOCEPHALIC - Eye Exam Eye Exam: EOMI, PERRL Pupil Exam: NORMAL ACCOMODATION, PERRL - ENT Exam ENT Exam: Mucous Membranes Moist, Normal External Ear Exam, TM's Normal Bilaterally - Neck Exam Neck Exam: Full ROM, Normal Inspection - Respiratory Exam Respiratory Exam: Clear to Ausculation Bilateral, NORMAL BREATHING PATTERN. absent: Rales, Rhonchi, Wheezes - Cardiovascular Exam Cardiovascular Exam: REGULAR RHYTHM, RRR, +S1, +S2 - GI/Abdominal Exam GI & Abdominal Exam: Soft, Normal Bowel Sounds. absent: Distended, Tenderness - Extremities Exam Extremities Exam: absent: Joint Swelling, Pedal Edema Additional comments: skin of the lower extremities are much darker than on other parts of the body. Quality of the skin is parchment like. The left lower leg with cracks in the skin but no obvious signs of cellulitis. Mild pinpoint areas of tenderness in the lower extremities bilaterally although left worse than right. Signs of chronic venous stasis. - Neurological Exam Neurological Exam: Alert, Awake, CN II-XII Intact, Oriented x3 - Psychiatric Exam Psychiatric exam: Normal Affect, Normal Mood - Skin Additional comments: As above. Assessment and Plan - Assessment and Plan (Free Text) Assessment: 83 yo AA male with pain in the bilateral lower extremities. The patient was recently in [facility]. Extensive medical history that includes lung Cancer, COPD, BPH, and CKD. It appears he had followed with Dr. Mario Chawla for Oncology. There are signs of chronic venous stasis in both lower extremities although the left is worse than the right. Minimal signs of cellulitis. No signs of DVT in testing. I suspect significant arterial vascular disease in the lower extremities especially left leg more than the right. Started on renally adjusted Teflaro for antibiotic therapy. If cultures negative, will deescalate antibiotics. Deescalate to Rocephin alone. When ready for discharge, can utilize oral Keflex for 7 days more at 500mg BID. Supportive care. Thank you for allowing me to participate in the care of the patient, we will follow with you.
[2018-08-13] MEDS: Ipratropium 0.02% Inhal Soln (0.5 mg/2.5 ml) UD IH SCH ×3 (01:22→13:14)
--- NOTE | 2018-08-13 03:06 | PN ---
DATE: 08/12/2018 SUBJECTIVE: The patient is an 83-year-old male. The patient was seen and examined on 08/12/2018, looking comfortable. No fever. No chills. No hematuria or hematochezia. Swelling of the legs is better. No headache. No dizziness. PHYSICAL EXAMINATION VITAL SIGNS: Blood pressure 120/56, pulse 92, temperature 98.3, oxygen saturation 95% on room air. HEENT: Head: Normocephalic, atraumatic. Eyes: PERRLA. Extraocular muscles are intact. Conjunctivae clear. Nose patent. Mucous membranes moist. NECK: Supple. No carotid bruit. No JVD or thyromegaly. HEART: S1 and S2, positive. ABDOMEN: Soft, nontender. No organomegaly. EXTREMITIES: Decreased edema bilaterally. Looks dry and flaky. No cyanosis. MEDICATIONS: Mucomyst, Brovana, Lipitor, Pulmicort, Rocephin, Cardizem, Proscar, Colace, Lasix, heparin, Dilaudid, Atrovent, Carafate. LABORATORY DATA: Sodium 137, potassium 4.6, BUN 53, creatinine 1.7, glucose 83. AST 47, ALT 36. ASSESSMENT AND PLAN: Mr. Enrike Bejarano is an 83-year-old male with multiple medical problems, has chronic obstructive lung disease, unresectable lung cancer, cellulitis of lower extremities, renal insufficiency, benign prostatic hypertrophy, psoriasis, hypertension, valvular heart disease. Continue inhaled bronchodilators, IV antibiotics as per Infectious Disease. Gastric prophylaxis, deep vein thrombosis prophylaxis with sleep apnea precautions. His oncologist is Dr. Chawla. As per the patient, he will continue with Dr. Chawla. He has chronic kidney disease, was recently discharged from [facility]. Seen by Infectious Disease, Dr. Torres. The patient is taking Teflaro, supportive care, out of bed, physical therapy. We will follow up. Jessica Cartagena MD
[2018-08-13] MEDS: Acetylcysteine 20% Inhal Soln (4ml) INH SCH ×2 (07:25→13:14)
[2018-08-13] MEDS: Arformoterol 15 mcg/2 ml Inh Sol IH SCH (07:25)
[2018-08-13] MEDS: Budesonide 0.5 mg/2 ml Inhal Susp UD IH SCH (07:25)
[2018-08-13 07:41] LABS: CALCIUM 9.3 mg/dL (8.4-10.5)
[2018-08-13] MEDS: Ammonium Lactate 12% Lotion (225 g) EXT SCH (09:53)
[2018-08-13] MEDS: Fluticasone Nasal 50 mcg/Spray NS SCH (09:53)
[2018-08-13] MEDS: Sucralfate 1 gm/10 ml Oral Susp UD PO SCH ×2 (11:10→17:20)
--- NOTE | 2018-08-13 13:01 | PN ---
PULMONARY PROGRESS NOTE DATE: 08/13/2018 REFERRING PHYSICIAN: Jessica Cartagena MD. SUBJECTIVE: The patient is sitting up at bedside. No acute distress. Reports feeling well today. No reported headache, rhinitis, cough, shortness of breath, chest pain, abdominal pain, nausea, vomiting, or diarrhea reported. The patient does report improvement in leg swelling and pain. PHYSICAL EXAMINATION GENERAL: No acute distress. VITAL SIGNS: Blood pressure 117/66, pulse 88, temperature 97.8, and oxygen saturation 98% on room air. HEENT: Moist mucous membranes. Crowded airway. Mallampati score of 4. NECK: Supple. No JVD. LUNGS: Fair airflow bilaterally. Few crackles at bases. CARDIOVASCULAR: S1 and S2 audible. ABDOMEN: Soft and nontender. No distension. No organomegaly. EXTREMITIES: +1 edema bilateral lower extremity. NEUROLOGIC: Awake, alert, verbal, and follows simple commands. MEDICATIONS: Reviewed. Mucomyst 3 mL inhalation twice a day, Brovana 15 mcg inhalation every 12 hours, aspirin 81 mg p.o. daily, Lipitor 10 mg p.o. at dinner, Pulmicort 0.5 mg inhalation every 12 hours, Cardizem 30 mg four times a day, Cozaar 100 mg twice a day, ferrous sulfate 324 mg p.o. daily, Proscar 5 mg p.o. daily, Flonase 1 spray each nostril daily, folic acid 1 mg p.o. daily, Lasix 10 mg p.o. daily, heparin 50,000 units subcutaneous every 12 hours, Dilaudid 0.5 mg IV push every 6 hours p.r.n., Atrovent 0.5 mg inhalation every 6 hours, lactic acid 1 gram extremities twice a day, prednisone 10 mg daily, Carafate 1 gram 4 times a day, and Flomax 0.4 mg daily. LABORATORY DATA: Reviewed. Sodium 138, potassium 4.8, chloride 103, carbon dioxide 31, anion gap 9, BUN 50, creatinine 1.7, GFR 47, random glucose 85 and calcium 9.3. IMPRESSION AND PLAN: Chronic obstructive lung disease, unresectable lung cancer, cellulitis of lower extremity, renal insufficiency, benign prostatic hypertrophy, psoriasis, hypertension, and mild valvular heart disease. Pulmonary point of view, the patient is doing well. Consider discharge planning. Continue inhaled bronchodilators, IV antibiotics per Infectious Disease, gastric prophylaxis, and deep venous thrombosis prophylaxis. Continue sleep apnea precautions. Head of bed elevated at 45 degrees. We recommend the patient have sleep study upon discharge as outpatient. Also, will need full pulmonary function test. The patient will need to follow up with Oncology as outpatient. Monitor electrolytes. This patient was seen and examined with Dr. Banegas. Discussed assessment and plan as described above. Thank you for this consult and we will follow with you. Perry Dotson APN Bubba Banegas MD
[2018-08-13 15:37] VITALS: BP 120/63; PULSE 100
[2018-08-13 16:10] VITALS: RESP 20; TEMP 98.6; O2SAT 100
[2018-08-13] MEDS ORDERED: Pneumococcal 23-Valent Vaccine IM ONE (16:24)
--- NOTE | 2018-08-13 17:33 | CP.PCM.PN ---
Subjective - Date & Time of Evaluation Date of Evaluation: 08/13/18 Time of Evaluation: 17:15 - Subjective Subjective: Infectious Disease Follow Up: August 13, 2018 83 yo male with extensive past medical history that includes lung cancer, COPD, BPH, and chronic kidney disease recently discharged from [facility] [place]. The patient complains of bilateral lower extremity pain with left greater than right. The patient is awake and alert. Currently afebrile. Venous Duplex was negative for DVT. Patient claims pain up to 10 out of 10 that hits only intermittently throughout the day. Currently the patient states pain is 0 but that he experiences intermittent pain as low as 5 out of 10 up to 10 out of 10. No new complaints today. Patient's major problem is his peripheral vascular disease of the lower extremities. The patient cellulitis is essentially resolved at this time. No new issues. Objective - Vital Signs/Intake and Output Vital Signs (last 24 hours): Temp Pulse Resp BP Pulse Ox 98.6 F 100 H 20 120/63 100 08/13/18 14:00 08/13/18 15:35 08/13/18 14:00 08/13/18 15:35 08/13/18 14:00 Intake and Output: 08/13/18 08/13/18 06:59 18:59 Intake Total 480 Output Total 700 Balance -220 - Medications Medications: Current Medications Acetylcysteine (Acetylcysteine 20%) 3 ml INH BID [facility] Last Admin: 08/13/18 13:14 Dose: Not Given Arformoterol Tartrate (Brovana) 15 mcg IH [id number] [facility] Last Admin: 08/13/18 07:25 Dose: 15 mcg Aspirin (Ecotrin) 81 mg PO DAILY [facility] Last Admin: 08/13/18 09:51 Dose: 81 mg Atorvastatin Calcium (Lipitor) 10 mg PO DIN [facility] Last Admin: 08/13/18 17:19 Dose: 10 mg Budesonide (Pulmicort Respules) 0.5 mg IH [id number] [facility] Last Admin: 08/13/18 07:25 Dose: 0.5 mg Diltiazem HCl (Cardizem) 30 mg PO QID [facility] Last Admin: 08/13/18 15:35 Dose: 30 mg Docusate Sodium (Colace) 100 mg PO BID [facility] Last Admin: 08/13/18 17:19 Dose: 100 mg Ferrous Sulfate (Feosol) 324 mg PO DAILY [facility] Last Admin: 08/13/18 09:51 Dose: 324 mg Finasteride (Proscar) 5 mg PO DAILY [facility] Last Admin: 08/13/18 09:50 Dose: 5 mg Fluticasone Propionate (Flonase) 1 actuation NS DAILY [facility] Last Admin: 08/13/18 09:53 Dose: 1 puff Folic Acid (Folic Acid) 1 mg PO DAILY [facility] Last Admin: 08/13/18 09:51 Dose: 1 mg Furosemide (Lasix) 10 mg PO DAILY [facility] Last Admin: 08/13/18 09:51 Dose: 10 mg Heparin Sodium (Porcine) (Heparin) 5,000 units SC Q12 [facility]; Protocol Last Admin: 08/13/18 09:50 Dose: 5,000 units Hydromorphone HCl (Dilaudid) 0.5 mg IVP Q6H PRN PRN Reason: Pain, Mild (1-3) Last Admin: 08/09/18 03:28 Dose: 0.5 mg Ipratropium [place] (Atrovent) 0.5 mg IH [id number] [facility] Last Admin: 08/13/18 13:14 Dose: 0.5 mg Lactic Acid (Lac-Hydrin 12% Lotion (225 G)) 1 gm EXT BID [facility] Last Admin: 08/13/18 09:53 Dose: 1 applic Prednisone (Prednisone Tab) 10 mg PO DAILY [facility] Last Admin: 08/13/18 09:51 Dose: 10 mg Sucralfate (Carafate Oral Susp) 1 gm PO 0630,1130,1630,2200 [facility] Last Admin: 08/13/18 17:20 Dose: 1 gm Tamsulosin HCl (Flomax) 0.4 mg PO DAILY [facility] Last Admin: 08/13/18 09:51 Dose: 0.4 mg - Labs Labs: 08/11/18 06:30 08/13/18 07:00 PT 14.0 SECONDS (9.4-12.5) H 08/07/18 06:20 INR 1.21 08/07/18 06:20 APTT 29.2 Seconds (25.1-36.5) 08/07/18 06:20 - Constitutional Appears: Non-toxic, No Acute Distress, Chronically Ill - Head Exam Head Exam: ATRAUMATIC, NORMOCEPHALIC - Eye Exam Eye Exam: EOMI, PERRL Pupil Exam: NORMAL ACCOMODATION, PERRL - ENT Exam ENT Exam: Mucous Membranes Moist, Normal External Ear Exam, TM's Normal Bilaterally - Neck Exam Neck Exam: Full ROM, Normal Inspection - Respiratory Exam Respiratory Exam: Clear to Ausculation Bilateral, NORMAL BREATHING PATTERN. absent: Rales, Rhonchi, Wheezes - Cardiovascular Exam Cardiovascular Exam: REGULAR RHYTHM, RRR, +S1, +S2 - GI/Abdominal Exam GI & Abdominal Exam: Soft, Normal Bowel Sounds. absent: Distended, Tenderness - Extremities Exam Extremities Exam: absent: Joint Swelling, Pedal Edema Additional comments: skin of the lower extremities are much darker than on other parts of the body. Quality of the skin is parchment like. The left lower leg with cracks in the skin but no obvious signs of cellulitis. Mild pinpoint areas of tenderness in the lower extremities bilaterally although left worse than right. Signs of chronic venous stasis. - Neurological Exam Neurological Exam: Alert, Awake, CN II-XII Intact, Oriented x3 - Psychiatric Exam Psychiatric exam: Normal Affect, Normal Mood - Skin Additional comments: As above. Assessment and Plan - Assessment and Plan (Free Text) Assessment: 83 yo AA male with pain in the bilateral lower extremities. The patient was recently in [facility] [place]. Extensive medical history that includes lung Cancer, COPD, BPH, and CKD. It appears he had followed with Dr. Mario Chawla for Oncology. There are signs of chronic venous stasis in both lower extremities although the left is worse than the right. Minimal signs of cellulitis. No signs of DVT in testing. I suspect significant arterial vascular disease in the lower extremities especially left leg more than the right. Started on renally adjusted Teflaro for antibiotic therapy. If cultures negative, will deescalate antibiotics. Deescalate to Rocephin alone. When ready for discharge, can utilize oral Keflex for 7 days more at 500mg BID. Supportive care. Thank you for allowing me to participate in the care of the patient, we will follow with you.
== END 2018-08-13 18:40 | disposition home or self-care (01) | DRG 603 ==
LOC: ED 03:02 → ERH 06:11 → 5RSO 08:24 → OBSVTOIN 08-08 11:16
PROVIDERS: ADMIT Internal Medicine; ATTEND Internal Medicine
DX: L03.116 Cellulitis of left lower limb (principal); C34.90 Malignant neoplasm of unspecified part of unspecified bronchus or lung; L03.115 Cellulitis of right lower limb; I12.9 Hypertensive chronic kidney disease with stage 1 through stage 4 chronic kidney disease, or unspecified chronic kidney disease; N18.9 Chronic kidney disease, unspecified; I73.9 Peripheral vascular disease, unspecified; I87.2 Venous insufficiency (chronic) (peripheral); D64.9 Anemia, unspecified; J44.9 Chronic obstructive pulmonary disease, unspecified; L40.9 Psoriasis, unspecified; L85.3 Xerosis cutis; N40.0 Benign prostatic hyperplasia without lower urinary tract symptoms; Z87.891 Personal history of nicotine dependence